=== PATIENT | male | born 1955 | race African-American/Black ===

== ENCOUNTER 2024-02-01 09:38 | Inpatient (IN) | payer SELFPAY ==
--- NOTE | ~2024-02-01 | XR_ITS ---
EXAMINATION: XR CHEST CLINICAL INFORMATION: Cough COMPARISON: None available. TECHNIQUE: Frontal view of the chest was obtained. FINDINGS: No significant abnormality is noted involving the heart, lungs, mediastinum, bony thorax or soft tissues. XR/XR chest 1V IMPRESSION: Unremarkable examination.
--- NOTE | ~2024-02-01 | XR_ITS ---
EXAMINATION: XR ABDOMEN KUB CLINICAL INDICATION: Distention post appendectomy COMPARISON: Previous CT of the abdomen and pelvis January 31 TECHNIQUE: AP view of the abdomen. FINDINGS: Air-filled distended small bowel. Differential would include ileus and partial small bowel obstruction. Nondilated large bowel. No free air. Surgical skin trice. Bony structures unremarkable. Subsegmental atelectasis at the right lung base. XR/XR KUB IMPRESSION: Air-filled distended small bowel. Differential would include ileus and partial small bowel obstruction.
--- NOTE | ~2024-02-01 | CT_ITS ---
EXAMINATION: CT ABDOMEN AND PELVIS WITH CONTRAST CLINICAL INFORMATION: Lower abdominal pain COMPARISON: Chest CT from the same day TECHNIQUE: Multidetector volumetric images were obtained from the superior aspect of the liver through the pubic symphysis following administration 85 mL of Omnipaque 350 intravenous contrast. Sagittal and coronal reformatted images were obtained on the technologist's workstation. Oral contrast: Yes This CT examination was performed using dose optimization techniques as appropriate, variously including the following: *Automated exposure control *Adjustment of mA and/or kV according to patient size (this includes techniques or standardized protocols for targeted exams where dose is matched to indication/reason for exam; i.e. extremities or head) *Use of iterative reconstruction technique DLP: 395 mGy-cm FINDINGS: LIVER, GALLBLADDER, AND BILIARY TREE: The liver is normal in size, shape, and attenuation. Multiple low-attenuation liver lesions. Larger lesions are compatible with cysts. Largest cyst is a multiloculated cyst with several thin septations high in the anterior segment of the right lobe of the liver. Smaller liver lesions are difficult to accurately characterize. No biliary ductal dilatation is present. The gallbladder is unremarkable with no evidence of radiopaque gallstones, gallbladder wall thickening, or obvious pericholecystic inflammatory changes. PANCREAS: Unremarkable. SPLEEN: Unremarkable. ADRENAL GLANDS: Unremarkable. KIDNEYS AND URETERS: The kidneys are normal in size, shape, and attenuation. No hydronephrosis, hydroureter, or calculi seen. I lateral renal cysts. No imaging follow-up recommended. No perinephric stranding. BLADDER: Unremarkable. GASTROINTESTINAL TRACT: There are extensive inflammatory changes seen in the right lower quadrant. The appendix is dilated measuring up to 1 cm and fluid-filled. There is wall enhancement of the appendix. There are several high attenuation densities within the appendiceal lumen questionable for appendicoliths. Largest measures 8 mm. There is abnormal adjacent distal small bowel that demonstrates marked bowel wall thickening, edema and mucosal enhancement. There is extensive stranding of the fat surrounding the appendix, distal small bowel including small bowel mesentery and trace fluid seen in the right lower quadrant. The more proximal small bowel is slightly dilated and fluid-filled. The colon is unremarkable. No evidence of perforation or abscess seen. ABDOMINAL WALL: No significant hernia is appreciated. LYMPH NODES: Small, small bowel mesentery lymphadenopathy in the right lower quadrant. Small retroperitoneal lymph nodes. No enlarged lymph nodes. VASCULAR: Unremarkable. The SMA and SMV are patent. PELVIC VISCERA: Slightly enlarged prostate gland. OSSEOUS STRUCTURES: Degenerative changes of the spine and hip joints. Probable Schmorl's nodes in the L3 vertebral body. CT/CT abdomen pelvis w IV con IMPRESSION: Severe inflammatory changes in the right lower quadrant with abnormal appearing appendix with likely appendicoliths and abnormal distal small bowel/terminal ileum. Primary infectious or inflammatory enteritis and secondary changes of the appendix and appendicitis and secondary inflammatory changes of the small bowel should be considered. There is extensive stranding of the fat surrounding the appendix and distal small bowel and fat stranding in the small bowel mesentery and small amount of free fluid. No evidence of perforation or abscess seen. Upper and bilateral renal cysts. Fleischner guidelines were followed.
--- NOTE | ~2024-02-01 | CT_ITS ---
EXAMINATION: CT CHEST WITHOUT CONTRAST CLINICAL INFORMATION: Recent flu-like symptoms. COMPARISON: Chest x-ray from earlier the same day. TECHNIQUE: Multidetector volumetric CT imaging of the chest was done. Axial MIP volume rendering provided. Sagittal and coronal reformatted images were obtained. This CT examination was performed using dose optimization techniques as appropriate, variously including the following: *Automated exposure control *Adjustment of mA and/or kV according to patient size (this includes techniques or standardized protocols for targeted exams where dose is matched to indication/reason for exam; i.e. extremities or head) *Use of iterative reconstruction technique DLP: 330 mGy-cm FINDINGS: Short-term follow-up chest CT with IV contrast. LUNGS: There is slight irregularity along the peripheral or subpleural surface of the left lower lobe dependently. There is mild left lower lobe bronchiectasis. Lungs are otherwise clear. No endobronchial or endotracheal lesion. No evidence of emphysema or interstitial lung disease. MEDIASTINUM: The mediastinum is normal. CORONARY ARTERY CALCIFICATION: None visualized on this study. PLEURA: There is no pleural effusion. There is question mild nodular left pleural thickening adjacent to the dependent of left lower lobe. AXILLA: No lymphadenopathy. Small left posterior lateral chest wall lipoma. UPPER ABDOMEN: Unremarkable. OSSEOUS STRUCTURES: Mild degenerative changes of the visualized lower cervical and the thoracic spine. CT/CT chest wo IV con IMPRESSION: Mild left lower lobe bronchiectasis. Irregularity along the dependent peripheral or subpleural surface of the left lower lobe versus slightly nodular pleural thickening. No pleural effusion. Short-term follow-up chest CT in several months with IV contrast recommended. Fleischner guidelines were followed.
[2024-02-01 09:53] VITALS: BP 135/85; BP 144/78; PULSE 76; PULSE 99; RESP 18; TEMP 37.8; O2SAT 96; O2SAT 98; BMI 25.3
[2024-02-01 10:21] LABS: MANUAL DIFF FLAG NO
[2024-02-01 10:34] LABS: Basophils Percent Auto 0.3 % (0-2); Eosinophils Percent Auto 0.1 % (0-4); Hematocrit 40.4 % (42.0-52.0); Hemoglobin 13.2 g/dl (14.0-18.0); Imm Gran Abs Auto 0.09 X10*3/uL (0.00-0.03); Imm Gran Pct Auto 0.6 % (0.0-0.4); Lymphocytes Percent Auto 7.2 % (20-40); Mean Corpuscular HGB Conc 32.7 g/dl (31.0-36.0); Mean Corpuscular Hemoglobin 27.4 pg (27.0-33.0); Mean Corpuscular Volume 83.8 fL (80.0-98.0); Mean Platelet Volume 9.6 fL (9.4-12.4); Monocytes Absolute Auto 0.9 X10*3/uL (0.1-1.2); Monocytes Percent Auto 6.6 % (2-11); Neutrophils Absolute Auto 12.1 x10*3/uL (2.0-8.3); Neutrophils Percent Auto 85.2 % (45-73); Platelet Count 394 X10*3/uL (160-400); Red Blood Count 4.82 X10*6/uL (4.60-5.80); Red Cell Distribution Width 12.6 % (11.0-16.0); White Blood Count 14.1 X10*3/uL (4.8-10.8)
[2024-02-01 10:39] LABS: Alanine Aminotransferase 14 U/L (0-40); Albumin Level 3.7 g/dL (3.5-5.0); Alkaline Phosphatase 74 U/L (39-117); Anion Gap 12 (12-20); Aspartate Amino Transferase 18 U/L (5-37); Bilirubin Total 0.7 mg/dL (0.0-1.0); Blood Urea Nitrogen 9 mg/dL (9-16); Calcium 9.9 mg/dL (8.4-10.2); Carbon Dioxide 27 mmol/L (22-29); Chloride 103 mmol/L (96-108); Creatinine Clr Calc Pharmacy 58.7; Estimated Glomerular Filt Rate > 60; Glucose Random 124 mg/dL (60-115); Lipase 42 U/L (8-78); Potassium 3.7 mmol/L (3.3-5.1); Sodium 138 mmol/L (135-145)
[2024-02-01 11:00] LABS: Influenza A PCR NEGATIVE (Negative); Influenza B PCR NEGATIVE (Negative); Resp Syncy Virus RNA Qual PCR NEGATIVE (Negative); SARS COV2 PCR INHOUSE NEGATIVE (Negative)
[2024-02-01 11:11] VITALS: RESP 16; TEMP 37.3
--- NOTE | 2024-02-01 13:40 | ED_ITS ---
HPI - General Adult General Chief complaint: Abdominal Pain Stated complaint: ABD PAIN DIARRHEA Time Seen by Provider: 02/01/24 13:28 Source: patient Mode of arrival: EMS Limitations: no limitations History of Present Illness HPI narrative: This is a 68-year-old man who was brought in by EMS for evaluation of abdominal pain, nausea, vomiting and diarrhea. Patient reports his symptoms started today. Patient reports no past medical history, chronic prescription medications or previous surgical history. Patient reports 1 episode of nonbloody diarrhea this morning. Patient reports few episodes of nausea, spitting up and emesis. He states no hematemesis. He states no dysuria or urinary frequency/urgency. He states no flank pain. He states no melena or hematochezia. He states no testicular pain or swelling. He states no abnormal penile discharge. He states no rashes. He states no chest pain or dyspnea. Patient states that about a week ago he had nasal congestion and subjective fevers. He states that he is from [place] is staying this friend. He states that he will be in the area for a couple more weeks. Related Data Home Medications ?Medication ?Instructions ?Recorded ?Confirmed No Known Home Meds 02/01/24 02/01/24 Allergies Allergy/AdvReac Type Severity Reaction Status Date / Time No Known Allergies Allergy Verified 02/01/24 09:56 Review of Systems 2 Review of Systems: ROS as per [facility] Social History Social History Alcohol intake: current Smoked in Last 30 Days: No Use of substances other than those prescribed or required for medical reasons: No Advance Directives: No Do you have a plan to hurt others: No Plan Physical Exam ED Vital Signs: Vital Signs - 24 hr 02/01/24 09:53 02/01/24 11:11 02/01/24 14:19 Temperature 100.1 F 99.2 F Pulse Rate 99 100 Respiratory Rate 18 16 20 Blood Pressure 144/78 H 149/75 H Pulse Oximetry 98 Oxygen Delivery Method Room Air 02/01/24 14:26 02/01/24 17:54 Temperature Pulse Rate 97 103 H Respiratory Rate 17 16 Blood Pressure 133/68 119/70 Pulse Oximetry 98 98 Oxygen Delivery Method Room Air Room Air BMI result Body Mass Index 25.3 Gen: NAD, AOx3 HEENT: NCAT, EOMI, normal conjunctiva CV: RRR Pulm: CTAB, no increased work of breathing GI: Soft, nondistended, mild bilateral lower abdominal tenderness to palpation, no rebound, guarding or rigidity Neuro: Grossly non focal Medications Administered Discontinued Medications Generic Name Dose Route Start Last Admin Trade Name Elly PRN Reason Stop Dose Admin Lactated Ringer's 1,000 mls @ 999 mls/hr 02/01/24 13:47 02/01/24 16:59 Lr IV 02/01/24 14:47 Infused .Q1H1M ONE Infusion Piperacillin Sod/Tazobactam 50 mls @ 100 mls/hr 02/01/24 16:27 02/01/24 17:26 Sod 3.375 gm/ Sodium Chloride IV 02/01/24 16:56 Infused ONCE ONE Infusion Iohexol 100 ml 02/01/24 14:58 02/01/24 14:58 Iohexol 350 Mg/Ml 100 Ml Infus..Btl IV 02/01/24 14:59 85 ml ONCE ONE Administration Morphine Sulfate 4 mg 02/01/24 13:47 02/01/24 14:11 Morphine Sulfate 4 Mg/Ml Cartridge IVPUSH 02/01/24 13:48 4 mg ONCE ONE Administration Protocol Ondansetron HCl 4 mg 02/01/24 13:47 02/01/24 14:11 Ondansetron Hcl 4 Mg/2 Ml Vial IVPUSH 02/01/24 13:48 4 mg ONCE ONE Administration Medical Decision Making Medical Decision Making MDM Narrative: Differential diagnosis includes, but is not limited to appendicitis, bowel obstruction, perforated hollow viscus, viral illness, gastroenteritis. Patient is afebrile and hemodynamically stable on room air. Exam is notable for a lower abdominal tenderness to palpation. I reviewed and interpreted labs, which is notable for a leukocytosis of 14.1. I reviewed and interpreted EKG, which is unremarkable for any acute findings. On re-examination at 3:47 p.m., patient reports feeling ?better? after receiving Zofran and Morphine. He is resting comfortably in hospital stretcher receiving IV fluids and awaiting CT imaging results. I do not suspect sepsis given overall well-appearing patient without fever or hemodynamic instability. Diagnostic imaging studies with findings concerning for appendicitis. General surgery is consulted at 1625. I discussed case and CT findings briefly with Dr. Lovett who requests discussion with his relief at 5:00pm. Patient is provided Zosyn. I will discuss with General Surgery at 5:00pm. 1636 - patient resting comfortably in hospital stretcher in no acute distress. 1706 - message sent to Dr. Palacios (General Surgery) I discussed case with Dr. Barrientos via telephone who requests admission. Patient admitted to Dr. Palacios at 1716. Admission/Observation Consideration of admission/observation: Escalation of care including admission/observation considered Consult Healthcare Provider Management of the patient was discussed with: Crm Consultant I discussed case with Dr. Palacios (General Surgery). Lab Data MDM Lab Attestation statement: I reviewed the patient's lab results. 02/01/24 10:16 02/01/24 10:16 Labs: Lab Results 02/01/24 Range/Units 10:16 WBC 14.1 H (4.8-10.8) X10*3/uL RBC 4.82 (4.60-5.80) X10*6/uL Hgb 13.2 L (14.0-18.0) g/dl Hct 40.4 L (42.0-52.0) % MCV 83.8 (80.0-98.0) fL MCH 27.4 (27.0-33.0) pg MCHC 32.7 (31.0-36.0) g/dl RDW 12.6 (11.0-16.0) % Plt Count 394 (160-400) X10*3/uL MPV 9.6 (9.4-12.4) fL Immature Gran % (Auto) 0.6 H (0.0-0.4) % Neut % (Auto) 85.2 H (45-73) % Lymph % (Auto) 7.2 L (20-40) % [place] % (Auto) 6.6 (2-11) % Eos % (Auto) 0.1 (0-4) % Baso % (Auto) 0.3 (0-2) % Lymph # (Auto) 1.0 L (1.2-4.9) X10*3/uL [place] # (Auto) 0.9 (0.1-1.2) X10*3/uL Eos # (Auto) 0.0 (0.0-0.4) X10*3/uL Baso # (Auto) 0.0 (0.0-0.2) X10*3/uL Abs Immat Gran (auto) 0.09 H (0.00-0.03) X10*3/uL Absolute Neuts (auto) 12.1 H (2.0-8.3) x10*3/uL Absolute Nucleated RBC 0.000 (0.0-0.012) X10*3/uL Nucleated RBC % (auto) 0.0 (0.0-0.2) /100WBC Sodium 138 (135-145) mmol/L Potassium 3.7 (3.3-5.1) mmol/L Chloride 103 (96-108) mmol/L Carbon Dioxide 27 (22-29) mmol/L Anion Gap 12 (12-20) BUN 9 (9-16) mg/dL Creatinine 1.14 (0.5-1.4) mg/dL Estim Creat Clear Calc 58.7 Estimated GFR > 60 Random Glucose 124 H (60-115) mg/dL Calcium 9.9 (8.4-10.2) mg/dL Total Bilirubin 0.7 (0.0-1.0) mg/dL AST 18 (5-37) U/L ALT 14 (0-40) U/L Alkaline Phosphatase 74 (39-117) U/L Total Protein 8.0 (6.5-8.0) g/dL Albumin 3.7 (3.5-5.0) g/dL Lipase 42 (8-78) U/L Influenza Type A (PCR) NEGATIVE (Negative) Influenza Type B (PCR) NEGATIVE (Negative) RSV RNA Qual (PCR) NEGATIVE (Negative) SARS-CoV-2 RNA (RT-PCR) NEGATIVE (Negative) Independent Interpretation I performed an independent interpretation of an: EKG and Plain X-Ray Interpretation: EKG demonstrates sinus rhythm at 84 beats per minutes, MA 206, first-degree AV block, QRS 96, QTC 508, no STEMI (no prior EKG for comparison) Chest x-ray does not demonstrate any pneumothorax, widened mediastinum or focal consolidation. Radiology Impression Discussion of test interpretation with radiology: I have reviewed the radiologist's reading. Radiologist Impression: IMPRESSION: Unremarkable examination. Dictated By: Patsy Martinez MD Signed By: <Electronically signed by Patsy Martinez MD in OV> 02/01/24 1231 IMPRESSION: Mild left lower lobe bronchiectasis. Irregularity along the dependent peripheral or subpleural surface of the left lower lobe versus slightly nodular pleural thickening. No pleural effusion. Short-term follow-up chest CT in several months with IV contrast recommended. Fleischner guidelines were followed. Dictated By: Patsy Martinez MD Signed By: <Electronically signed by Patsy Martinez MD in OV> 02/01/24 1617 IMPRESSION: Severe inflammatory changes in the right lower quadrant with abnormal appearing appendix with likely appendicoliths and abnormal distal small bowel/terminal ileum. Primary infectious or inflammatory enteritis and secondary changes of the appendix and appendicitis and secondary inflammatory changes of the small bowel should be considered. There is extensive stranding of the fat surrounding the appendix and distal small bowel and fat stranding in the small bowel mesentery and small amount of free fluid. No evidence of perforation or abscess seen. Upper and bilateral renal cysts. Fleischner guidelines were followed. Dictated By: Patsy Martinez MD Signed By: <Electronically signed by Patsy Martinez MD in OV> 02/01/24 1613 Discharge Plan Discharge Clinical Impression: Acute appendicitis Patient Disposition: Admitted As Inpatient Print Language: Other
--- NOTE | 2024-02-01 13:42 | ECG_ITS ---
Test Reason : ABDOMINAL PAIN Blood Pressure : / mmHG Vent. Rate : 100 BPM Atrial Rate : 100 BPM P-R Int : 150 ms QRS Dur : 082 ms QT Int : 320 ms P-R-T Axes : 072 096 052 degrees QTc Int : 412 ms Normal sinus rhythm Possible Left atrial enlargement Rightward axis Biventricular hypertrophy Abnormal ECG No previous ECGs available Referred By: Oskar Betancourt Electronically Signed By:ERIC DIAZ MD
[2024-02-01] MEDS: Lactated Ringers 1,000 ML 999 ML IV (14:10)
[2024-02-01] MEDS: ondansetron HCL 4 MG/2 ML VIAL IVPUSH (14:11)
[2024-02-01] MEDS: Morphine Sulfate 4 MG/ML CARTRIDGE IVPUSH (14:11)
[2024-02-01 14:19] VITALS: BP 149/75; PULSE 100; RESP 20
[2024-02-01 14:26] VITALS: BP 133/68; PULSE 97; RESP 17; O2SAT 98
[2024-02-01] MEDS: iohexoL 350 MG/ML 100 ML INFUS..BTL IV (14:58)
[2024-02-01] MEDS: Piperacillin Sodium/Tazobactam 3.375 GM in 0.9 % Sodium Chloride 50 ML IV (16:55)
[2024-02-01 17:54] VITALS: BP 119/70; PULSE 103; RESP 16; O2SAT 98
--- NOTE | 2024-02-01 18:51 | PHA.MEDREC ---
Pharmacy Consult ? Medication Reconciliation Pharmacy has completed the medication reconciliation. PT not on any meds at home.
--- NOTE | 2024-02-01 19:24 | PC.NURSE ---
This RN assumed pt care @ 1900. Pt resting in bed, no signs of distress. Plan of care ongoing.
--- NOTE | 2024-02-01 19:41 | PM.HPGS ---
History of Present Illness History of Present Illness Date of Service: 02/02/24 Chief complaint: abdo pain Narrative: Monica Singh is a 68 year old male who lives in [place] visiting friends when he says he got caught in the rain and got wet and then got a cold and then with a cold started having abdominal pain some diarrhea and then the pain got worse in the right lower quadrant so she came to the emergency room. He has had a temperature he has never had pain like this before. Generally he says he is very healthy and does not really take any medications no previous surgeries. Here his white count was elevated in the 14,[address] scan showed significant inflammatory changes in the right lower quadrant with thickened small bowel and appendix a little enlarged with appendicolith present. Question primary appendicitis with reactive small bowel versus the opposite. Patient denies any issues with Crohn's disease ulcerative colitis etc.. Review of Systems Review of Systems: Yes all other systems are reviewed and are negative PMFSH Social History Social History Household Members: Significant Other Housing: Apartment Do you presently have visiting nurse or other home services: No Alcohol intake: current Patient Tobacco Use Status: Former Tobacco user Smoked in Last 30 Days: No Use of substances other than those prescribed or required for medical reasons: No Do you feel safe in your current relationship?: Yes Advance Directives: No Do you have a plan to hurt others: No Plan Recently lost weight without trying: No service: No Meds Allergies Allergy/AdvReac Type Severity Reaction Status Date / Time No Known Allergies Allergy Verified 02/01/24 09:56 Home Medications ?Medication ?Instructions ?Recorded ?Confirmed ?Last Taken ?Type No Known Home Meds 02/01/24 02/01/24 Unknown History Physical Exam Vital Signs: Vital Signs: Last Vital Signs Temp 99.2 F 02/01/24 11:11 Pulse 103 H 02/01/24 17:54 Resp 16 02/01/24 17:54 BP 119/70 02/01/24 17:54 Pulse Ox 98 02/01/24 17:54 O2 Del Method Room Air 02/01/24 17:54 BMI result Body Mass Index 25.3 Const: General: cooperative, healthy appearing, no acute distress and acute distress mild Orientation/consciousness: oriented to person and patient oriented x3 Resp: Effort & Inspection: normal respiratory effort and able to speak in complete sentences Auscultation: clear to auscultation bilaterally Percussion: percussion normal Cardio: Rate: regular rate Rhythm: regular rhythm GI: Other: Abdomen is soft nondistended tender with guarding in the right lower quadrant no peritoneal signs active bowel sounds no masses Skin: Other: Nonicteric Neuro: General: oriented to person and patient oriented x3 Cranial nerves: Yes CN's II-XII intact bilaterally Extrem: General: Yes normal to inspection Results Results Labs: Short CBC 02/01/24 Range/Units 10:16 WBC 14.1 H (4.8-10.8) X10*3/uL Hgb 13.2 L (14.0-18.0) g/dl Hct 40.4 L (42.0-52.0) % Plt Count 394 (160-400) X10*3/uL BMP 02/01/24 10:16 Sodium 138 Potassium 3.7 Chloride 103 Carbon Dioxide 27 BUN 9 Creatinine 1.14 Calcium 9.9 Liver Function 02/01/24 Range/Units 10:16 Total Bilirubin 0.7 (0.0-1.0) mg/dL AST 18 (5-37) U/L ALT 14 (0-40) U/L Alkaline Phosphatase 74 (39-117) U/L Albumin 3.7 (3.5-5.0) g/dL Abdomen CT scan report/results: report reviewed and image reviewed CT scan - pelvis: report reviewed and image reviewed Additional studies: dering Physician: Oskar Betancourt MD Date of Service: 02/01/24 Procedure(s): CT abdomen pelvis w IV con Accession Number(s): [id number] cc: Physician,None ; Oskar Betancourt MD~ EXAMINATION: CT ABDOMEN AND PELVIS WITH CONTRAST CLINICAL INFORMATION: Lower abdominal pain COMPARISON: Chest CT from the same day TECHNIQUE: Multidetector volumetric images were obtained from the superior aspect of the liver through the pubic symphysis following administration 85 mL of Omnipaque 350 intravenous contrast. Sagittal and coronal reformatted images were obtained on the technologist's workstation. Oral contrast: Yes This CT examination was performed using dose optimization techniques as appropriate, variously including the following: *Automated exposure control *Adjustment of mA and/or kV according to patient size (this includes techniques or standardized protocols for targeted exams where dose is matched to indication/reason for exam; i.e. extremities or head) *Use of iterative reconstruction technique DLP: 395 mGy-cm FINDINGS: LIVER, GALLBLADDER, AND BILIARY TREE: The liver is normal in size, shape, and attenuation. Multiple low-attenuation liver lesions. Larger lesions are compatible with cysts. Largest cyst is a multiloculated cyst with several thin septations high in the anterior segment of the right lobe of the liver. Smaller liver lesions are difficult to accurately characterize. No biliary ductal dilatation is present. The gallbladder is unremarkable with no evidence of radiopaque gallstones, gallbladder wall thickening, or obvious pericholecystic inflammatory changes. PANCREAS: Unremarkable. SPLEEN: Unremarkable. ADRENAL GLANDS: Unremarkable. KIDNEYS AND URETERS: The kidneys are normal in size, shape, and attenuation. No hydronephrosis, hydroureter, or calculi seen. I lateral renal cysts. No imaging follow-up recommended. No perinephric stranding. BLADDER: Unremarkable. GASTROINTESTINAL TRACT: There are extensive inflammatory changes seen in the right lower quadrant. The appendix is dilated measuring up to 1 cm and fluid-filled. There is wall enhancement of the appendix. There are several high attenuation densities within the appendiceal lumen questionable for appendicoliths. Largest measures 8 mm. There is abnormal adjacent distal small bowel that demonstrates marked bowel wall thickening, edema and mucosal enhancement. There is extensive stranding of the fat surrounding the appendix, distal small bowel including small bowel mesentery and trace fluid seen in the right lower quadrant. The more proximal small bowel is slightly dilated and fluid-filled. The colon is unremarkable. No evidence of perforation or abscess seen. ABDOMINAL WALL: No significant hernia is appreciated. LYMPH NODES: Small, small bowel mesentery lymphadenopathy in the right lower quadrant. Small retroperitoneal lymph nodes. No enlarged lymph nodes. VASCULAR: Unremarkable. The SMA and SMV are patent. PELVIC VISCERA: Slightly enlarged prostate gland. OSSEOUS STRUCTURES: Degenerative changes of the spine and hip joints. Probable Schmorl's nodes in the L3 vertebral body. CT/CT abdomen pelvis w IV con IMPRESSION: Severe inflammatory changes in the right lower quadrant with abnormal appearing appendix with likely appendicoliths and abnormal distal small bowel/terminal ileum. Primary infectious or inflammatory enteritis and secondary changes of the appendix and appendicitis and secondary inflammatory changes of the small bowel should be considered. There is extensive stranding of the fat surrounding the appendix and distal small bowel and fat stranding in the small bowel mesentery and small amount of free fluid. No evidence of perforation or abscess seen. Upper and bilateral renal cysts. Assessment and Plan (1) Acute appendicitis: Status: Acute Plan 68-year-old male with abdominal pain after couple of days of not feeling well having what he calls this a flu and now with pain in the right lower quadrant CT scan showing inflammatory changes involving small bowel that is thickened as well as the appendix which is little distended and with appendicolith present. There is a lot inflammatory changes in the fat tissue surrounding the appendix in the mesentery of the small bowel. It has not quite certain that this is for sure appendicitis versus some type of enteritis considering his prodrome of those symptoms as well. Plan to admit IV antibiotics re-evaluate in the morning and if not improved then carry out exploratory laparoscopy with appendectomy. He is from out of town but understands that he needs to be here in the hospital for IV antibiotics and care and possible surgery. He understands and agrees with the above plan. Quality Stroke Does the patient have a stroke diagnosis?: No VTE Prior VTE?: No VTE Risk Level:: Surgical - low VTE Device Contraindication: N/A - Device Ordered VTE Drug Contraindication: Treatment Not Tolerated Procedures Date of Service Date of Service: 02/02/24
--- NOTE | 2024-02-01 19:45 | PC.NURSE ---
Pt with surgeon. Pt to be tx with abx and will remain on npo for now. Pt given a pillow for comfort. Plan of care ongoing.
[2024-02-01] MEDS: 0.9 % Sodium Chloride 1,000 ML 100 ML IVCONT (20:25)
[2024-02-01] MEDS: Pantoprazole Sodium 40 MG/10 ML VIAL IVPUSH (20:26)
--- NOTE | 2024-02-01 20:30 | PC.NURSE ---
Pt transferred into hospital bed for comfort. Pt medicated per oct. Plan of care ongoing.
[2024-02-01 21:31] VITALS: BP 119/61; PULSE 99; RESP 20; TEMP 38.4; O2SAT 96
[2024-02-02] VITALS (13 sets, daily range): BP systolic 104–143; BP diastolic 65–86; PULSE 73–100; RESP 12–19; TEMP 36.1–37.9; O2SAT 94–98; BMI 26.1
[2024-02-02] MEDS: Piperacillin Sodium/Tazobactam 3.375 GM in 0.9 % Sodium Chloride 50 ML IV ×4 (01:00→18:33)
--- NOTE | 2024-02-02 01:22 | PC.NURSE ---
Pt medicated per oct. Plan of care ongoing.
[2024-02-02 06:16] LABS: MANUAL DIFF FLAG NO
[2024-02-02 06:28] LABS: Basophils Percent Auto 0.2 % (0-2); Hematocrit 39.5 % (42.0-52.0); Hemoglobin 12.8 g/dl (14.0-18.0); Imm Gran Abs Auto 0.16 X10*3/uL (0.00-0.03); Imm Gran Pct Auto 0.9 % (0.0-0.4); Lymphocytes Percent Auto 5.6 % (20-40); Mean Corpuscular HGB Conc 32.4 g/dl (31.0-36.0); Mean Corpuscular Hemoglobin 27.1 pg (27.0-33.0); Mean Corpuscular Volume 83.5 fL (80.0-98.0); Mean Platelet Volume 9.5 fL (9.4-12.4); Monocytes Absolute Auto 0.6 X10*3/uL (0.1-1.2); Monocytes Percent Auto 3.6 % (2-11); Neutrophils Absolute Auto 15.7 x10*3/uL (2.0-8.3); Neutrophils Percent Auto 89.7 % (45-73); Platelet Count 374 X10*3/uL (160-400); Red Blood Count 4.73 X10*6/uL (4.60-5.80); Red Cell Distribution Width 12.7 % (11.0-16.0); White Blood Count 17.5 X10*3/uL (4.8-10.8)
[2024-02-02] MEDS: 0.9 % Sodium Chloride 1,000 ML 100 ML IVCONT ×2 (06:40→22:24)
[2024-02-02 06:43] LABS: Anion Gap 13 (12-20); Blood Urea Nitrogen 9 mg/dL (9-16); Calcium 9.5 mg/dL (8.4-10.2); Carbon Dioxide 22 mmol/L (22-29); Chloride 106 mmol/L (96-108); Creatinine Clr Calc Pharmacy 61.4; Estimated Glomerular Filt Rate > 60; Glucose Random 102 mg/dL (60-115); Potassium 3.6 mmol/L (3.3-5.1); Sodium 137 mmol/L (135-145)
[2024-02-02] MEDS: Pantoprazole Sodium 40 MG/10 ML VIAL IVPUSH (07:31)
--- NOTE | 2024-02-02 07:39 | PC.NURSE ---
patient appears to be resting quietly w/ even and unlabored respirations. medicated per the MAR.
[2024-02-02] MEDS: ondansetron HCL 4 MG/2 ML VIAL IVPUSH (11:41)
--- NOTE | 2024-02-02 13:05 | MHC.CM.PN ---
Patient lives w/ , Anna, in a home in [place]. He is currently visting a friend in [place]. Functionally independent. Denies use of services or DME. States he has an appt to establish care w/ a PCP in [place], but he cannot recall name of provider. He is unsure if he has insurance. No HCP. CM provided education and offered assistance. Patient declined. DP: Goal is return to friend's house, self care, friend to transport. CM will continue to follow.
--- NOTE | 2024-02-02 13:56 | P.PNGS_ITS ---
Subjective Subjective Date of Service: 02/02/24 Interval history: Patient not feeling better still with abdominal pain had a temperature last night up to 101. Physical Exam 2 Vital Signs: Vital Signs: Last Vital Signs Temp 97.7 F 02/02/24 13:37 Pulse 97 02/02/24 13:37 Resp 16 02/02/24 13:37 BP 143/86 H 02/02/24 13:37 Pulse Ox 97 02/02/24 13:37 O2 Del Method Room Air 02/02/24 13:37 BMI result Body Mass Index 26.1 Const: General: cooperative and in distress mild Resp: Effort & Inspection: normal respiratory effort Auscultation: clear to auscultation bilaterally Cardio: Rate: regular rate Rhythm: regular rhythm GI: Other: Abdomen is soft nondistended tender in the right lower quadrant continued guarding no peritoneal signs Inspection: Yes normal to inspection Psych: Appearance: grossly normal Mental Status: mental status grossly normal Speech and movement: Normal speech and movement present Affect: n ormal affect Objective Data Active Medications Sodium Chloride (Ns) 1,000 mls @ 100 mls/hr IVCONT .Q10H [facility] Last Admin: 02/02/24 06:40 Dose: 100 mls/hr Documented By: LIZZETTE Piperacillin Sod/Tazobactam (Sod 3.375 gm/ Sodium Chloride) 50 mls @ 100 mls/hr IV Q6H [facility] Last Infusion: 02/02/24 12:21 Dose: Infused Documented By: YARI Ketorolac Tromethamine (Ketorolac Tromethamine 15 Mg/Ml Vial) 15 mg IVPUSH RQ6H PRN PRN Reason: Pain, Severe (Pain Scale 7-10) Ondansetron HCl (Ondansetron Hcl 4 Mg/2 Ml Vial) 4 mg IVPUSH RQ6H PRN PRN Reason: Nausea and Vomiting Last Admin: 02/02/24 11:41 Dose: 4 mg Documented By: YARI Pantoprazole Sodium (Pantoprazole Sodium 40 Mg/10 Ml Vial) 40 mg IVPUSH DAILY [facility] Last Admin: 02/02/24 07:31 Dose: 40 mg Documented By: YANET Sodium Chloride (0.9 % Sodium Chloride Flush 3 Ml Syringe) 3 ml IVFLUSH QSHIFT [facility] Last Admin: 06/08/24 10:26 Dose: Not Given Documented By: YARI Non-Admin Reason: IV Running Labs 02/02/24 05:56 02/02/24 05:56 Labs: Laboratory Results - last 24 hr 02/02/24 05:56 MCV 83.5 MCH 27.1 MCHC 32.4 RDW 12.7 Plt Count 374 MPV 9.5 Immature Gran % (Auto) 0.9 H Neut % (Auto) 89.7 H Lymph % (Auto) 5.6 L [place] % (Auto) 3.6 Eos % (Auto) 0.0 Baso % (Auto) 0.2 Lymph # (Auto) 1.0 L [place] # (Auto) 0.6 Eos # (Auto) 0.0 Baso # (Auto) 0.0 Abs Immat Gran (auto) 0.16 H Absolute Neuts (auto) 15.7 H Absolute Nucleated RBC 0.000 Nucleated RBC % (auto) 0.0 Anion Gap 13 Estim Creat Clear Calc 61.4 Estimated GFR > 60 Random Glucose 102 Calcium 9.5 Procedures Date of Service Date of Service: 02/02/24 Progress Note: A&P Assessment and plan (1) Acute appendicitis: Status: Acute Plan 68-year-old male with right lower quadrant pain inflammatory changes in the right lower quadrant involving the appendix as well as the small bowel. Patient has not improved with IV antibiotics and bowel rest plan to carry out laparoscopic exploration possible open procedure with goal to remove the appendix. Risks and benefit were discussed with the patient including but not limited to bleeding infection bowel injury despite this he wishes to proceed. We will plan on taking him to the OR today. Time Spent With Patient Time: Total time managing care of this patient today ____ minutes. Quality Stroke Does the patient have a stroke diagnosis?: No VTE Prior VTE?: No VTE Risk Level:: Surgical - low VTE Device Contraindication: N/A - Device Ordered VTE Drug Contraindication: Treatment Not Tolerated
--- NOTE | 2024-02-02 15:15 | P.CONAN_ITS ---
HPI - Anesthesia Eval Consult details Narrative: Abdominal pain PMFSH Active Problems Active Problems: All Active Problems Acute appendicitis (Acute) Family History Family history of problems with anesthesia: No Surgical History History of Problems with Anesthesia: No Social History Social History Household Members: Significant Other Housing: Apartment Do you presently have visiting nurse or other home services: No Alcohol intake: current Patient Tobacco Use Status: Former Tobacco user Smoked in Last 30 Days: No Use of substances other than those prescribed or required for medical reasons: No Do you feel safe in your current relationship?: Yes Advance Directives: No Do you have a plan to hurt others: No Plan Recently lost weight without trying: No service: No Meds Allergies Allergy/AdvReac Type Severity Reaction Status Date / Time No Known Allergies Allergy Verified 02/01/24 09:56 Active Medications: Current Medications Sodium Chloride (Ns) 1,000 mls @ 100 mls/hr IVCONT .Q10H [facility] Last Admin: 02/02/24 06:40 Dose: 100 mls/hr Piperacillin Sod/Tazobactam (Sod 3.375 gm/ Sodium Chloride) 50 mls @ 100 mls/hr IV Q6H [facility] Last Infusion: 02/02/24 12:21 Dose: Infused Ketorolac Tromethamine (Ketorolac Tromethamine 15 Mg/Ml Vial) 15 mg IVPUSH RQ6H PRN PRN Reason: Pain, Severe (Pain Scale 7-10) Ondansetron HCl (Ondansetron Hcl 4 Mg/2 Ml Vial) 4 mg IVPUSH RQ6H PRN PRN Reason: Nausea and Vomiting Last Admin: 02/02/24 11:41 Dose: 4 mg Pantoprazole Sodium (Pantoprazole Sodium 40 Mg/10 Ml Vial) 40 mg IVPUSH DAILY [facility] Last Admin: 02/02/24 07:31 Dose: 40 mg Sodium Chloride (0.9 % Sodium Chloride Flush 3 Ml Syringe) 3 ml IVFLUSH QSHIFT [facility] Last Admin: 02/02/24 10:26 Dose: Not Given Home Medications ?Medication ?Instructions ?Recorded ?Confirmed ?Last Taken ?Type No Known Home Meds 02/01/24 02/01/24 Unknown History Exam Height,Weight and Vital Signs: Height 5 ft 7 in Weight 75.5 kg Last Vital Signs Temp 98.7 F 02/02/24 14:51 Pulse 98 02/02/24 14:51 Resp 16 02/02/24 14:51 BP 135/75 02/02/24 14:51 Pulse Ox 98 02/02/24 14:51 O2 Del Method Room Air 02/02/24 14:51 Pertinent Lab Results Pertinent Lab Results: Laboratory Tests 02/01/24 02/02/24 10:16 05:56 WBC 14.1 H 17.5 H RBC 4.82 4.73 Hgb 13.2 L 12.8 L Hct 40.4 L 39.5 L MCV 83.8 83.5 MCH 27.4 27.1 MCHC 32.7 32.4 RDW 12.6 12.7 Plt Count 394 374 MPV 9.6 9.5 Immature Gran % (Auto) 0.6 H 0.9 H Neut % (Auto) 85.2 H 89.7 H Lymph % (Auto) 7.2 L 5.6 L [place] % (Auto) 6.6 3.6 Eos % (Auto) 0.1 0.0 Baso % (Auto) 0.3 0.2 Lymph # (Auto) 1.0 L 1.0 L [place] # (Auto) 0.9 0.6 Eos # (Auto) 0.0 0.0 Baso # (Auto) 0.0 0.0 Abs Immat Gran (auto) 0.09 H 0.16 H Absolute Neuts (auto) 12.1 H 15.7 H Absolute Nucleated RBC 0.000 0.000 Nucleated RBC % (auto) 0.0 0.0 Sodium 138 137 Potassium 3.7 3.6 Chloride 103 106 Carbon Dioxide 27 22 Anion Gap 12 13 BUN 9 9 Creatinine 1.14 1.09 Estim Creat Clear Calc 58.7 61.4 Estimated GFR > 60 > 60 Random Glucose 124 H 102 Calcium 9.9 9.5 Total Bilirubin 0.7 AST 18 ALT 14 Alkaline Phosphatase 74 Total Protein 8.0 Albumin 3.7 Lipase 42 Influenza Type A (PCR) NEGATIVE Influenza Type B (PCR) NEGATIVE RSV RNA Qual (PCR) NEGATIVE SARS-CoV-2 RNA (RT-PCR) NEGATIVE Airway Mallampati Class: I TM Dist: >3cm Neck ROM: Full Loose/Missing/Broken Teeth: No Heart: RRR Lungs: CTA Assessment and Plan Assessment Anesthesia Assessment: Anesthesia Plan Discussed and Chart Reviewed Final Anesthetic Review Family History of Problems with Anesthesia: No History of Problems with Anesthesia: No NPO: Yes ASA Class: I Final Preanesthetic Review: No Changes in Pt Med Stat, Meds/Allgs Chart Reviewed, Consent Obtained/Reviewed and Anes Risks/Benef Reviewed Patient Risk: Low Procedure Risk: Intermediate Anesthetic Plan Anesthetic Plan: GA Disposition: Standard PACU
--- NOTE | 2024-02-02 18:47 | P.OP_ITS ---
Operative Note Operative Note Date of Service: 02/02/24 Narrative: Preop diagnosis-- acute appendicitis Postop diagnosis-- ruptured appendicitis Procedure-- exploratory laparoscopy converted to open appendectomy Surgeon--Orionclaudia Anesthesia-- general Patient is a 68-year-old male who presented to the emergency room yesterday complaining of getting a cold flu symptoms and then eventually having more right-sided pain. He presented with tenderness in the right lower quadrant white count elevated to 14,000 and significant inflammatory changes in the right lower quadrant with terminal ileum being thickened as well as the appendix being distended and with appendicolith present. Unsure what the initial primary issue was and treated him with IV antibiotics observation overnight but not improved so plan was to carry out laparoscopic appendectomy Findings-- The appendix was surrounded by the terminal ileum and there was a pocket of purulent material at the base of the cecum and the TI. In further evaluation the appendix had ruptured and there was free appendicolith present distally although most of the inflammatory changes were all around the cecum and TI. Procedure-- Patient was brought to the operative room under Anesthesia guidance was intubated. He had a Grady catheter placed. He had been receiving antibiotics preoperatively. His abdomen was prepped and draped in standard surgical fashion. An infraumbilical incision was created after numbing up the area with a 0.25% Marcaine with epinephrine. Dissection was carried down to the anterior abdominal wall fascia which was grasped with Cheryl's and transected. The Felipe trocar introduced and pneumoperitoneum established to 15 mmHg pressure. The camera was introduced and immediately was noted that there was moderate distended small bowel loops throughout. Positioning the patient left side down we were able to see a little bit more in the right pelvic lateral area and there was an area of significant inflammatory changes noted. Two 5 mm ports were then placed under direct visualization using local 1 in the suprapubic area and 1 in the left lower quadrant. Now we were able to look at the cecum and follow the thickened terminal ileum to the base of the cecum in this area it was noted that we got into a pocket of purulent material and there was significant who is of white thick material and then eventually noted was a little stool ball. We are able to find part of the appendix but in trying to evaluate what the problem was and probing near the TI cecal junction a true hole was not noted. No succus material was seen. It was difficult to really understand the anatomy here and so thought was to maybe carry out an open procedure however there was a benefit to mobilize the right colon laterally and this was done laparoscopically. In doing so we got to the point where we could bring over that part of the colon under the midline area and it was decided to open with a midline incision. This was carried out a little above and below the umbilicus and the peritoneal cavity was entered. Immediately the thickened terminal ileum was noted underneath the incision this was brought out through the wound and examined. The bowel wall itself thickened but viable and fine the mesentery here was very thick in examining where the TI entered into the cecum despite laparoscopically they are noted to be moderate amount of purulent material here the junction seemed relatively okay. In examining now the appendix was noted to be in 2 parts but still connected via the mesentery. In following the base of the appendix all the way up to the cecum the actual junction was identified and it actually looked decent. As a result it was decided to just carry out appendectomy and not have to do a full ileocecectomy with anastomosis. The base of the appendix was dissected out with a right angle and then the Endo-DEEPAK stapler fired across the appendiceal cecal junction. This tissue actually looked quite viable and good. Using 3-0 silk the appendiceal stump area was imbricated over. The L igaSure was then used to take off the appendix from the mesentery and this allowed the appendix to be passed off for specimen. Examination of the distal ileum TI and cecal junction revealed everything looked good. The cecal area also looked good. The appendiceal stump looked good. Moderate suctioned and irrigation was carried out there was no purulent material noted now. Good hemostasis was achieved. The cecum was then placed again in the right colon gutter and the midline incision closed with running 0 PDS superiorly and inferiorly in the wound and tied centrally. The subcutaneous fatty tissue was irrigated with Betadine saline. Ronda were then used to approximate the skin edges after local was infiltrated in the tissue here. Port site incisions were closed with trice as well. At the end of the case all sponge instrument needle counts were correct estimated blood loss was about 20 cc. Specimen sent was the appendix. Patient was extubated returned stable to the recovery room. Grady catheter will be left in for in's and out's monitoring as most likely expect him to have some degree of an ileus
[2024-02-02] MEDS: Enoxaparin Sodium 40 MG/0.4 ML SYRINGE SUBCUT (19:57)
[2024-02-03] MEDS: Ketorolac Tromethamine 15 MG/ML VIAL IVPUSH ×4 (00:10→17:18)
[2024-02-03] MEDS: Piperacillin Sodium/Tazobactam 3.375 GM in 0.9 % Sodium Chloride 50 ML IV ×4 (00:11→17:19)
[2024-02-03 03:34] VITALS: BP 121/76; PULSE 66; RESP 16; TEMP 36.3; O2SAT 98
[2024-02-03 06:38] LABS: Basophils Percent Auto 0.2 % (0-2); Eosinophils Percent Auto 0.2 % (0-4); Hemoglobin 13.2 g/dl (14.0-18.0); Imm Gran Abs Auto 0.09 X10*3/uL (0.00-0.03); Imm Gran Pct Auto 0.5 % (0.0-0.4); Lymphocytes Absolute Auto 0.6 X10*3/uL (1.2-4.9); Lymphocytes Percent Auto 3.6 % (20-40); MANUAL DIFF FLAG SCAN; Mean Corpuscular Hemoglobin 27.8 pg (27.0-33.0); Mean Corpuscular Volume 84.2 fL (80.0-98.0); Mean Platelet Volume 9.7 fL (9.4-12.4); Monocytes Absolute Auto 0.5 X10*3/uL (0.1-1.2); Monocytes Percent Auto 2.8 % (2-11); Neutrophils Absolute Auto 15.6 x10*3/uL (2.0-8.3); Neutrophils Percent Auto 92.7 % (45-73); Platelet Count 366 X10*3/uL (160-400); Red Blood Count 4.75 X10*6/uL (4.60-5.80); Red Cell Distribution Width 12.8 % (11.0-16.0); SCAN SMEAR FLAG 1; White Blood Count 16.8 X10*3/uL (4.8-10.8)
[2024-02-03 07:13] LABS: SLIDE REVIEW VERIFIED
[2024-02-03 07:14] VITALS: BP 107/64; PULSE 67; RESP 18; TEMP 36.8; O2SAT 98
[2024-02-03] MEDS: Pantoprazole Sodium 40 MG/10 ML VIAL IVPUSH (07:42)
[2024-02-03 08:45] LABS: Anion Gap 12 (12-20); Blood Urea Nitrogen 19 mg/dL (9-16); Calcium 9.1 mg/dL (8.4-10.2); Carbon Dioxide 23 mmol/L (22-29); Chloride 109 mmol/L (96-108); Estimated Glomerular Filt Rate > 60; Glucose Fasting 137 mg/dL (60-99); Potassium 4.6 mmol/L (3.3-5.1); Sodium 139 mmol/L (135-145)
[2024-02-03] MEDS: 0.9 % Sodium Chloride 1,000 ML 100 ML IVCONT (10:46)
--- NOTE | 2024-02-03 11:57 | HO.POSTANES ---
Post Anesthesia Evaluation Post Anesthesia Evaluation Date of Service: 02/03/24 Vital Signs: Vital Signs Temp Pulse Resp BP Pulse Ox O2 Del Method 02/03/24 07:14 98.2 F 67 18 107/64 98 Room Air 02/03/24 03:34 97.3 F 66 16 121/76 98 Room Air Anesthesia: General Endotracheal-GETA Mental Status: Awake Pain Control: Satisfactory Nausea/Vomiting: None Hydration: Adequate Anesthesia-Related Issues: No Anes. Related Issues
--- NOTE | 2024-02-03 12:23 | PM.PNGS ---
Subjective Subjective Date of Service: 02/03/24 Interval history: FEELING MUCH BETTER, NO flatus but less pain Physical Exam Vital Signs: Vital Signs: Last Vital Signs Temp 98.2 F 02/03/24 07:14 Pulse 67 02/03/24 07:14 Resp 18 02/03/24 07:14 BP 107/64 02/03/24 07:14 Pulse Ox 98 02/03/24 07:14 O2 Del Method Room Air 02/03/24 07:14 O2 Flow Rate 6 02/02/24 18:43 BMI result Body Mass Index 26.1 Const: General: cooperative, healthy appearing and comfortable Resp: Effort & Inspection: normal respiratory effort Auscultation: clear to auscultation bilaterally Cardio: Rate: regular rate Rhythm: regular rhythm GI: Other: abdo soft less tender rlq - appropriate midline tenderness Objective Data Active Medications Enoxaparin Sodium (Enoxaparin Sodium 40 Mg/0.4 Ml Syringe) 40 mg SUBCUT Q24H [facility] Last Admin: 02/02/24 19:57 Dose: 40 mg Documented By: MARK Sodium Chloride (Ns) 1,000 mls @ 100 mls/hr IVCONT .Q10H [facility] Last Admin: 02/03/24 10:46 Dose: 100 mls/hr Documented By: YARI Piperacillin Sod/Tazobactam (Sod 3.375 gm/ Sodium Chloride) 50 mls @ 100 mls/hr IV Q6H [facility] Last Infusion: 02/03/24 12:05 Dose: Infused Documented By: YARI Ketorolac Tromethamine (Ketorolac Tromethamine 15 Mg/Ml Vial) 15 mg IVPUSH RQ6H PRN PRN Reason: Pain, Severe (Pain Scale 7-10) Ketorolac Tromethamine (Ketorolac Tromethamine 15 Mg/Ml Vial) 15 mg IVPUSH Q6H [facility] Last Admin: 02/03/24 11:35 Dose: 15 mg Documented By: YARI Morphine Sulfate (Morphine Sulfate 4 Mg/Ml Cartridge) 4 mg IVPUSH Q3H PRN; Protocol PRN Reason: Pain, Severe (Pain Scale 7-10) Ondansetron HCl (Ondansetron Hcl 4 Mg/2 Ml Vial) 4 mg IVPUSH RQ6H PRN PRN Reason: Nausea and Vomiting Last Admin: 02/02/24 11:41 Dose: 4 mg Documented By: YARI Pantoprazole Sodium (Pantoprazole Sodium 40 Mg/10 Ml Vial) 40 mg IVPUSH DAILY [facility] Last Admin: 02/03/24 07:42 Dose: 40 mg Documented By: YARI Sodium Chloride (0.9 % Sodium Chloride Flush 3 Ml Syringe) 3 ml IVFLUSH QSHIFT [facility] Last Admin: 02/03/24 07:41 Dose: Not Given Documented By: YARI Non-Admin Reason: IV Running Labs 02/03/24 05:47 02/03/24 Unknown Labs: Laboratory Results - last 24 hr 02/03/24 02/03/24 05:47 Unknown MCV 84.2 MCH 27.8 MCHC 33.0 RDW 12.8 Plt Count 366 MPV 9.7 Immature Gran % (Auto) 0.5 H Neut % (Auto) 92.7 H Lymph % (Auto) 3.6 L [place] % (Auto) 2.8 Eos % (Auto) 0.2 Baso % (Auto) 0.2 Lymph # (Auto) 0.6 L [place] # (Auto) 0.5 Eos # (Auto) 0.0 Baso # (Auto) 0.0 Abs Immat Gran (auto) 0.09 H Absolute Neuts (auto) 15.6 H Absolute Nucleated RBC 0.000 Nucleated RBC % (auto) 0.0 Smear Tech's Comments VERIFIED Anion Gap 12 Estim Creat Clear Calc 62.0 Estimated GFR > 60 Fasting Glucose 137 H Calcium 9.1 Procedures Date of Service Date of Service: 02/03/24 Progress Note: A&P Assessment and plan (1) Acute appendicitis: Status: Acute Plan pT SP POD 2 WITH ACUTE PERF APPENDICITIS - DOING WELL - MAY HAVE ILEUS DUE TO PERF AND DISTENDED SMALL BOWEL BUT DOING WELL slow po advance and iv antibx and po pain meds Time Spent With Patient Time: Total time managing care of this patient today ____ minutes. Quality Stroke Does the patient have a stroke diagnosis?: No VTE Prior VTE?: No VTE Risk Level:: Surgical - low VTE Device Contraindication: N/A - Device Ordered VTE Drug Contraindication: Treatment Not Tolerated
--- NOTE | 2024-02-03 12:51 | PC.NURSE ---
F/C removed at this time.
[2024-02-03 13:28] VITALS: BP 138/88; PULSE 72; RESP 17; TEMP 37; O2SAT 98
[2024-02-03] MEDS: Morphine Sulfate 4 MG/ML CARTRIDGE IVPUSH (14:51)
[2024-02-03 15:43] VITALS: BP 111/77; PULSE 83; RESP 18; TEMP 36.5; O2SAT 97
[2024-02-03 19:27] VITALS: BP 121/73; PULSE 83; RESP 18; TEMP 36.6; O2SAT 97
[2024-02-03] MEDS: Enoxaparin Sodium 40 MG/0.4 ML SYRINGE SUBCUT (19:51)
--- NOTE | 2024-02-03 23:20 | PC.NURSE ---
Addendum entered by Vivien Lindsay RN 02/04/24 06:20: patient not voided yet since last time, bladder scanned for 90 ml. Addendum entered by Vivien Lindsay RN 02/04/24 00:13: patient just voided 350 ml. Original Note: FC removed during day shift. First DTV was supposed to be at 1900, patient did not void yet, no discomfort .Bladder scanned for 160 ml at this time. Will cont. to monitor.
[2024-02-03 23:38] VITALS: BP 112/71; PULSE 79; RESP 18; TEMP 36.6; O2SAT 97
[2024-02-04] VITALS (9 sets, daily range): BP systolic 117–150; BP diastolic 68–80; PULSE 74–92; RESP 17–20; TEMP 36.1–37.1; O2SAT 95–97
[2024-02-04] MEDS: Ketorolac Tromethamine 15 MG/ML VIAL IVPUSH ×5 (00:38→23:46)
[2024-02-04] MEDS: 0.9 % Sodium Chloride Flush 3 ML SYRINGE IVFLUSH ×4 (00:39→20:52)
[2024-02-04] MEDS: Piperacillin Sodium/Tazobactam 3.375 GM in 0.9 % Sodium Chloride 50 ML IV ×5 (00:39→23:49)
[2024-02-04 06:15] LABS: Basophils Percent Auto 0.2 % (0-2); Hematocrit 38.4 % (42.0-52.0); Hemoglobin 12.5 g/dl (14.0-18.0); Imm Gran Pct Auto 0.6 % (0.0-0.4); Lymphocytes Absolute Auto 0.9 X10*3/uL (1.2-4.9); Lymphocytes Percent Auto 5.2 % (20-40); MANUAL DIFF FLAG SCAN; Mean Corpuscular HGB Conc 32.6 g/dl (31.0-36.0); Mean Corpuscular Volume 82.9 fL (80.0-98.0); Mean Platelet Volume 9.4 fL (9.4-12.4); Monocytes Absolute Auto 0.6 X10*3/uL (0.1-1.2); Monocytes Percent Auto 3.8 % (2-11); Neutrophils Absolute Auto 14.9 x10*3/uL (2.0-8.3); Neutrophils Percent Auto 90.2 % (45-73); Platelet Count 391 X10*3/uL (160-400); Red Blood Count 4.63 X10*6/uL (4.60-5.80); SCAN SMEAR FLAG 1; White Blood Count 16.5 X10*3/uL (4.8-10.8)
--- NOTE | 2024-02-04 07:34 | P.PNGS_ITS ---
Subjective Subjective Date of Service: 02/04/24 <Kristin Gautam PA-C - Last Filed: 02/04/24 07:36> 02/04/24 <Bautista Lovett MD - Last Filed: 02/04/24 08:02> Interval history: Still with some nausea, no flatus yet. OOB and ambulating occasionally. Pain minimal and well controlled. <Kristin Gautam PA-C - Last Filed: 02/04/24 07:36> Physical Exam 2 Vital Signs: Vital Signs: Last Vital Signs Temp 97.1 F 02/04/24 07:15 Pulse 74 02/04/24 07:15 Resp 17 02/04/24 07:15 BP 132/80 02/04/24 07:15 Pulse Ox 96 02/04/24 07:15 O2 Del Method Room Air 02/04/24 07:15 O2 Flow Rate 6 02/02/24 18:43 BMI result Body Mass Index 26.1 <Kristin Gautam PA-C - Last Filed: 02/04/24 07:36> Const: General: comfortable, no acute distress and alert <Kristin Gautam PA-C - Last Filed: 02/04/24 07:36> Orientation/consciousness: patient oriented x3 <RONNI Flores Last Filed: 02/04/24 07:36> Resp: Effort & Inspection: normal respiratory effort <Kristin Gautam PA-C - Last Filed: 02/04/24 07:36> GI: Inspection: Yes distended and Yes incision (clean) <Kristin Gautam PA-C - Last Filed: 02/04/24 07:36> Palpation (GI): Soft to palpation, Tenderness to palpation present (GI) (incisional) and no guarding <RONNI Flores Last Filed: 02/04/24 07:36> Skin: General skin exam: no rashes or lesions noted <RONNI Flores Last Filed: 02/04/24 07:36> Neuro: General: patient oriented x3 and moves all extremities <RONNI Flores Last Filed: 02/04/24 07:36> Objective Data Active Medications Enoxaparin Sodium (Enoxaparin Sodium 40 Mg/0.4 Ml Syringe) 40 mg SUBCUT Q24H [facility] Last Admin: 02/03/24 19:51 Dose: 40 mg Documented By: MARK Piperacillin Sod/Tazobactam (Sod 3.375 gm/ Sodium Chloride) 50 mls @ 100 mls/hr IV Q6H [facility] Last Infusion: 02/04/24 06:35 Dose: Infused Documented By: MARK Ketorolac Tromethamine (Ketorolac Tromethamine 15 Mg/Ml Vial) 15 mg IVPUSH RQ6H PRN PRN Reason: Pain, Severe (Pain Scale 7-10) Ketorolac Tromethamine (Ketorolac Tromethamine 15 Mg/Ml Vial) 15 mg IVPUSH Q6H [facility] Last Admin: 02/04/24 05:59 Dose: 15 mg Documented By: MARK Morphine Sulfate (Morphine Sulfate 4 Mg/Ml Cartridge) 4 mg IVPUSH Q3H PRN; Protocol PRN Reason: Pain, Severe (Pain Scale 7-10) Last Admin: 02/03/24 14:51 Dose: 4 mg Documented By: YARI Ondansetron HCl (Ondansetron Hcl 4 Mg/2 Ml Vial) 4 mg IVPUSH RQ6H PRN PRN Reason: Nausea and Vomiting Last Admin: 02/02/24 11:41 Dose: 4 mg Documented By: YARI Pantoprazole Sodium (Pantoprazole Sodium 40 Mg/10 Ml Vial) 40 mg IVPUSH DAILY [facility] Last Admin: 02/03/24 07:42 Dose: 40 mg Documented By: YARI Sodium Chloride (0.9 % Sodium Chloride Flush 3 Ml Syringe) 3 ml IVFLUSH QSHIFT [facility] Last Admin: 02/04/24 00:39 Dose: 3 ml Documented By: MARK <Kristin Gautam PA-C - Last Filed: 02/04/24 07:36> Labs CBC & Chem 7: 02/03/24 05:47 02/03/24 Unknown <Kristin Gautam PA-C - Last Filed: 02/04/24 07:36> Labs: Laboratory Results - last 24 hr 02/03/24 Unknown Anion Gap 12 Estim Creat Clear Calc 62.0 Estimated GFR > 60 Fasting Glucose 137 H Calcium 9.1 <Kristin Gautam PA-C - Last Filed: 02/04/24 07:36> Procedures Date of Service Date of Service: 02/04/24 <Kristin Gautam PA-C - Last Filed: 02/04/24 07:36> 02/04/24 <Bautista Lovett MD - Last Filed: 02/04/24 08:02> Progress Note: A&P Assessment and plan (1) S/P appendectomy: Status: Acute <Kristin Gautam PA-C - Last Filed: 02/04/24 07:36> Assessment and Plan: Feels well overall Minimal pain Abdomen is soft, mildly distended, no guarding rebound, incisions clean and dry Describes some nausea Plan to advance diet as soon as good return of GI function is noted Looks well overall Encouraged to ambulate and get out of bed Seen and examined independently <aButista Lovett MD - Last Filed: 02/04/24 08:02> (2) Acute appendicitis: Status: Acute <Kristin Gautam PA-C - Last Filed: 02/04/24 07:36> Assessment and Plan: S/p open appendectomy for perf appendicitis. GI function slow to recover. VSs. Abd exam with clean incisions, distended. Will cont clear liquids until evidence of GI function. Increase activity. Educated on IS use and encouraged 10x/hr. Patient comfortable with plan. Cont IV abx. <Kristin Gautam PA-C - Last Filed: 02/04/24 07:36> Time Spent With Patient Time: Total time managing care of this patient today ____ minutes. <Kristin Gautam PA-C - Last Filed: 02/04/24 07:36> Quality Stroke Does the patient have a stroke diagnosis?: No <Kristin Gautam PA-C - Last Filed: 02/04/24 07:36> VTE Prior VTE?: No <Kristin Gautam PA-C - Last Filed: 02/04/24 07:36> VTE Risk Level:: Surgical - low <RONNI Flores Last Filed: 02/04/24 07:36> VTE Device Contraindication: N/A - Device Ordered <Kristin Gautam PA-C - Last Filed: 02/04/24 07:36> VTE Drug Contraindication: Treatment Not Tolerated <Kristin Gautam PA-C - Last Filed: 02/04/24 07:36>
[2024-02-04 08:19] LABS: SLIDE REVIEW VERIFIED
--- NOTE | 2024-02-04 08:44 | HO.POSTANES ---
Post Anesthesia Evaluation Post Anesthesia Evaluation Date of Service: 02/04/24 Vital Signs: Vital Signs Temp Pulse Resp BP Pulse Ox O2 Del Method 02/04/24 07:15 97.1 F 74 17 132/80 96 Room Air 02/04/24 04:00 97.3 F 79 18 117/73 96 Room Air 02/03/24 23:38 97.9 F 79 18 112/71 97 Room Air Anesthesia: General Endotracheal-GETA Mental Status: Awake Pain Control: Satisfactory Nausea/Vomiting: None Hydration: Adequate Anesthesia-Related Issues: No Anes. Related Issues
[2024-02-04] MEDS: Morphine Sulfate 4 MG/ML CARTRIDGE IVPUSH ×2 (08:52→20:49)
[2024-02-04] MEDS: Pantoprazole Sodium 40 MG/10 ML VIAL IVPUSH (08:55)
[2024-02-04] MEDS: ondansetron HCL 4 MG/2 ML VIAL IVPUSH (08:57)
--- NOTE | 2024-02-04 13:06 | MHC.CM.PN ---
pt not discussed in rounds dc plan remains home
[2024-02-04] MEDS: Enoxaparin Sodium 40 MG/0.4 ML SYRINGE SUBCUT (17:46)
--- NOTE | 2024-02-04 20:35 | PC.NURSE ---
This RN assumed care at 1900, Pt AOx4, Pt reporting 7/10 constant abd pain. Respirations even an unlabored, clear lung sounds throughout. BSx4, abdomen round and tender, midline incision dsg D/I with no drainage noted. Pt calm, cooperative and no apparent distress, call vargas within reach.
[2024-02-05 03:28] VITALS: BP 133/77; PULSE 92; RESP 16; TEMP 36.6; O2SAT 96
[2024-02-05] MEDS: ondansetron HCL 4 MG/2 ML VIAL IVPUSH ×2 (04:37→16:41)
[2024-02-05] MEDS: Ketorolac Tromethamine 15 MG/ML VIAL IVPUSH ×4 (05:15→23:33)
[2024-02-05] MEDS: Piperacillin Sodium/Tazobactam 3.375 GM in 0.9 % Sodium Chloride 50 ML IV ×4 (05:16→23:34)
[2024-02-05 07:49] VITALS: BP 138/79; PULSE 82; RESP 16; TEMP 36.5; O2SAT 98
--- NOTE | 2024-02-05 08:15 | PM.PNGS ---
Subjective Subjective Date of Service: 02/05/24 <Kristin Gautam PA-C - Last Filed: 02/05/24 08:18> 02/05/24 <Bautista Lovett MD - Last Filed: 02/05/24 08:35> Interval history: Vomited twice last night but feels improved this morning. No flatus. Ambulating without difficulty with walker. <Kristin Gautam PA-C - Last Filed: 02/05/24 08:18> Physical Exam Vital Signs: Vital Signs: Last Vital Signs Temp 97.7 F 02/05/24 07:49 Pulse 8 L 02/05/24 07:49 Resp 16 02/05/24 07:49 BP 138/79 02/05/24 07:49 Pulse Ox 98 02/05/24 07:49 O2 Del Method Room Air 02/05/24 07:49 O2 Flow Rate 6 02/02/24 18:43 BMI result Body Mass Index 26.1 <Kristin Gautam PA-C - Last Filed: 02/05/24 08:18> Const: General: comfortable, no acute distress and alert <Kristin Gautam PA-C - Last Filed: 02/05/24 08:18> Orientation/consciousness: patient oriented x3 <RONNI Flores Last Filed: 02/05/24 08:18> Resp: Effort & Inspection: normal respiratory effort <Kristin Gautam PA-C - Last Filed: 02/05/24 08:18> GI: Inspection: Yes distended and Yes incision (clean) <Kristin Gautam PA-C - Last Filed: 02/05/24 08:18> Palpation (GI): Soft to palpation, Tenderness to palpation present (GI) (mild incisional) and no guarding <RONNI Flores Last Filed: 02/05/24 08:18> Skin: General skin exam: no rashes or lesions noted <RONNI Flores Last Filed: 02/05/24 08:18> Neuro: General: patient oriented x3 and moves all extremities <RONNI Flores Last Filed: 02/05/24 08:18> Objective Data Active Medications Enoxaparin Sodium (Enoxaparin Sodium 40 Mg/0.4 Ml Syringe) 40 mg SUBCUT Q24H [facility] Last Admin: 02/04/24 17:46 Dose: 40 mg Documented By: RAFITA Piperacillin Sod/Tazobactam (Sod 3.375 gm/ Sodium Chloride) 50 mls @ 100 mls/hr IV Q6H [facility] Last Infusion: 02/05/24 05:46 Dose: Infused Documented By: EDDIE Ketorolac Tromethamine (Ketorolac Tromethamine 15 Mg/Ml Vial) 15 mg IVPUSH RQ6H PRN PRN Reason: Pain, Severe (Pain Scale 7-10) Ketorolac Tromethamine (Ketorolac Tromethamine 15 Mg/Ml Vial) 15 mg IVPUSH Q6H [facility] Last Admin: 02/05/24 05:15 Dose: 15 mg Documented By: EDDIE Morphine Sulfate (Morphine Sulfate 4 Mg/Ml Cartridge) 4 mg IVPUSH Q3H PRN; Protocol PRN Reason: Pain, Severe (Pain Scale 7-10) Last Admin: 02/04/24 20:49 Dose: 4 mg Documented By: EDDIE Ondansetron HCl (Ondansetron Hcl 4 Mg/2 Ml Vial) 4 mg IVPUSH RQ6H PRN PRN Reason: Nausea and Vomiting Last Admin: 02/05/24 04:37 Dose: 4 mg Documented By: EDDIE Sodium Chloride (0.9 % Sodium Chloride Flush 3 Ml Syringe) 3 ml IVFLUSH QSHIFT [facility] Last Admin: 02/04/24 20:52 Dose: 3 ml Documented By: EDDIE <Kristin Gautam PA-C - Last Filed: 02/05/24 08:18> Labs CBC & Chem 7: 02/04/24 06:01 02/03/24 Unknown <Kristin Gautam PA-C - Last Filed: 02/05/24 08:18> Labs: Laboratory Results - last 24 hr 02/04/24 06:01 MCV 82.9 MCH 27.0 MCHC 32.6 RDW 13.0 Plt Count 391 MPV 9.4 Immature Gran % (Auto) 0.6 H Neut % (Auto) 90.2 H Lymph % (Auto) 5.2 L D[place] % (Auto) 3.8 Eos % (Auto) 0.0 Baso % (Auto) 0.2 Lymph # (Auto) 0.9 L [place] # (Auto) 0.6 Eos # (Auto) 0.0 Baso # (Auto) 0.0 Abs Immat Gran (auto) 0.10 H Absolute Neuts (auto) 14.9 H Absolute Nucleated RBC 0.000 Nucleated RBC % (auto) 0.0 Smear Tech's Comments VERIFIED <Kristin Gautam PA-C - Last Filed: 02/05/24 08:18> Procedures Date of Service Date of Service: 02/05/24 <Kristin Gautam PA-C - Last Filed: 02/05/24 08:18> 02/05/24 <Bautista Lovett MD - Last Filed: 02/05/24 08:35> Progress Note: A&P Assessment and plan (1) S/P appendectomy: Status: Acute <Kristin Gautam PA-C - Last Filed: 02/05/24 08:18> Assessment and Plan: says he vomitted last night denies flatus looks well abd soft and benign await return of GI function encouraged ambulation seen and examined independently <Bautista Lovett MD - Last Filed: 02/05/24 08:35> Assessment and Plan: S/p open appendectomy for perf appendicitis. GI function slow to recover, expected due to amount of inflammatory changes surrounding SB due to perforation. VSS. Abd exam with clean incisions, remains distended. Will cont clear liquids until evidence of GI function. Increase activity. Educated on IS use and encouraged 10x/hr. Patient comfortable with plan. Cont IV abx. <Kristin Gautam PA-C - Last Filed: 02/05/24 08:18> Time Spent With Patient Time: Total time managing care of this patient today ____ minutes. <Kristin Gautam PA-C - Last Filed: 02/05/24 08:18> Quality Stroke Does the patient have a stroke diagnosis?: No <RONNI Flores Last Filed: 02/05/24 08:18> VTE Prior VTE?: No <Kristin Gautam PA-C - Last Filed: 02/05/24 08:18> VTE Risk Level:: Surgical - low <Kristin Gautam PA-C - Last Filed: 02/05/24 08:18> VTE Device Contraindication: N/A - Device Ordered <Kristin Gautam PA-C - Last Filed: 02/05/24 08:18> VTE Drug Contraindication: Treatment Not Tolerated <Kristin Gautam PA-C - Last Filed: 02/05/24 08:18>
[2024-02-05] MEDS: 0.9 % Sodium Chloride Flush 3 ML SYRINGE IVFLUSH ×3 (08:28→23:36)
[2024-02-05 12:00] VITALS: BP 135/88; PULSE 83; RESP 16; TEMP 36.4; O2SAT 96
[2024-02-05 15:00] VITALS: BP 122/80; PULSE 87; RESP 16; TEMP 36.2; O2SAT 97
[2024-02-05 19:59] VITALS: BP 150/80; PULSE 74; RESP 16; TEMP 36.4; O2SAT 98
[2024-02-05] MEDS: Enoxaparin Sodium 40 MG/0.4 ML SYRINGE SUBCUT (20:10)
--- NOTE | 2024-02-05 20:30 | PC.NURSE ---
This RN assumed care at 1900, Pt AOx4, Pt denies pain at this time. Respirations even an unlabored, clear lung sounds throughout. Hypoactive BSx4, abdomen round and tender, per pt no flatulence passed yet, midline incision dsg D/I with no drainage noted. Pt calm, cooperative and no apparent distress, call vargas within reach.
[2024-02-05 23:39] VITALS: BP 136/82; PULSE 83; RESP 16; TEMP 36; O2SAT 99
[2024-02-06] VITALS (8 sets, daily range): BP systolic 144–171; BP diastolic 60–93; PULSE 64–84; RESP 16–18; TEMP 36–36.4; O2SAT 98–100
[2024-02-06] MEDS: Ketorolac Tromethamine 15 MG/ML VIAL IVPUSH ×4 (05:08→23:44)
[2024-02-06] MEDS: Piperacillin Sodium/Tazobactam 3.375 GM in 0.9 % Sodium Chloride 50 ML IV ×4 (05:10→23:45)
[2024-02-06] MEDS: 0.9 % Sodium Chloride Flush 3 ML SYRINGE IVFLUSH ×2 (07:10→23:49)
--- NOTE | 2024-02-06 08:30 | P.PNGS_ITS ---
Subjective Subjective Date of Service: 02/06/24 Interval history: Says he feels well this morning Denies pain Denies vomiting Tolerating clear liquids Says he has passed flatus Physical Exam 2 Vital Signs: Vital Signs: Last Vital Signs Temp 97.6 F 02/06/24 07:59 Pulse 84 02/06/24 07:59 Resp 18 02/06/24 07:59 BP 144/87 H 02/06/24 07:59 Pulse Ox 99 02/06/24 07:59 O2 Del Method Room Air 02/06/24 07:59 O2 Flow Rate 6 02/02/24 18:43 BMI result Body Mass Index 26.1 Const: Other: Looks well General: comfortable and no acute distress Resp: Effort & Inspection: normal respiratory effort Cardio: Rate: regular rate GI: Other: Mildly distended but soft, incision clean and dry Palpation (GI): Soft to palpation, not firm and no guarding Objective Data Active Medications Enoxaparin Sodium (Enoxaparin Sodium 40 Mg/0.4 Ml Syringe) 40 mg SUBCUT Q24H [facility] Last Admin: 02/05/24 20:10 Dose: 40 mg Documented By: EDDIE Piperacillin Sod/Tazobactam (Sod 3.375 gm/ Sodium Chloride) 50 mls @ 100 mls/hr IV Q6H [facility] Last Infusion: 02/06/24 05:40 Dose: Infused Documented By: EDDIE Ketorolac Tromethamine (Ketorolac Tromethamine 15 Mg/Ml Vial) 15 mg IVPUSH RQ6H PRN PRN Reason: Pain, Severe (Pain Scale 7-10) Ketorolac Tromethamine (Ketorolac Tromethamine 15 Mg/Ml Vial) 15 mg IVPUSH Q6H [facility] Last Admin: 02/06/24 05:08 Dose: 15 mg Documented By: EDDIE Morphine Sulfate (Morphine Sulfate 4 Mg/Ml Cartridge) 4 mg IVPUSH Q3H PRN; Protocol PRN Reason: Pain, Severe (Pain Scale 7-10) Last Admin: 02/04/24 20:49 Dose: 4 mg Documented By: EDDIE Ondansetron HCl (Ondansetron Hcl 4 Mg/2 Ml Vial) 4 mg IVPUSH RQ6H PRN PRN Reason: Nausea and Vomiting Last Admin: 02/05/24 16:41 Dose: 4 mg Documented By: RAFITA Sodium Chloride (0.9 % Sodium Chloride Flush 3 Ml Syringe) 3 ml IVFLUSH QSHIFT [facility] Last Admin: 02/06/24 07:10 Dose: 3 ml Documented By: SETHIT Labs 02/04/24 06:01 02/03/24 Unknown Procedures Date of Service Date of Service: 02/06/24 Progress Note: A&P Assessment and plan (1) Acute appendicitis: Status: Acute Assessment and Plan: Status post open appendectomy Clinically doing well No fever Passed flatus Abdominal exam benign Will advance diet as tolerated DC home once tolerating diet well Discussed with his as well Time Spent With Patient Time: Total time managing care of this patient today ____ minutes. Quality Stroke Does the patient have a stroke diagnosis?: No VTE Prior VTE?: No VTE Risk Level:: Surgical - low VTE Device Contraindication: N/A - Device Ordered VTE Drug Contraindication: Treatment Not Tolerated
[2024-02-06] MEDS: ondansetron HCL 4 MG/2 ML VIAL IVPUSH (12:35)
--- NOTE | 2024-02-06 12:38 | PC.NURSE ---
Abdomen distended,patient complaining of increased burning pain in lower abdomen,c/o nausea,Zofran administered,Dr. Lovett notified,NPO ,patient made aware
[2024-02-06] MEDS: Lactated Ringers 1,000 ML 80 ML IVCONT (13:26)
--- NOTE | 2024-02-06 14:44 | PM.EVENT ---
Event Note Date of Service: 02/06/24 Event Note: Seen on afternoon rounds He complained of distention and some pain after eating Also reports some nausea Abdomen remains very soft and benign KUB ordered - shows some distended small bowel loops suggestive of ileus keep on clear liquids for now Repeat labs tomorrow Clinically looks well No fever Time Spent With Patient Time: Total time managing care of this patient today ____ minutes.
--- NOTE | 2024-02-06 16:28 | PM.EVENT ---
Event Note Date of Service: 02/06/24 Event Note: he says he feels well this afternoon denies abdl pain says he has had no nausea this afternoon abd soft, benign keep on clears today reevaluate tomorrow check labs tomorrow Time Spent With Patient Time: Total time managing care of this patient today ____ minutes.
[2024-02-06] MEDS: Enoxaparin Sodium 40 MG/0.4 ML SYRINGE SUBCUT (17:01)
[2024-02-07] VITALS (7 sets, daily range): BP systolic 138–166; BP diastolic 78–94; PULSE 61–90; RESP 13–18; TEMP 36.1–36.4; O2SAT 98–100
[2024-02-07] MEDS: Morphine Sulfate 4 MG/ML CARTRIDGE IVPUSH ×2 (01:16→10:28)
[2024-02-07] MEDS: Piperacillin Sodium/Tazobactam 3.375 GM in 0.9 % Sodium Chloride 50 ML IV ×3 (05:40→17:48)
[2024-02-07] MEDS: Ketorolac Tromethamine 15 MG/ML VIAL IVPUSH ×3 (05:40→17:47)
--- NOTE | 2024-02-07 08:05 | PM.PNGS ---
Subjective Subjective Date of Service: 02/07/24 <Kristin Gautam PA-C - Last Filed: 02/07/24 08:08> 02/07/24 <Bautista Lovett MD - Last Filed: 02/07/24 08:36> Interval history: Feels better this morning. Less bloating. No nausea or vomiting overnight. Continues to pass flatus but no BM. Ambulating halls multiple tmes a day. Would like to try food again. <Kristin Gautam PA-C - Last Filed: 02/07/24 08:08> Physical Exam Vital Signs: Vital Signs: Last Vital Signs Temp 96.9 F 02/07/24 07:16 Pulse 68 02/07/24 07:16 Resp 18 02/07/24 07:16 BP 140/80 H 02/07/24 07:16 Pulse Ox 100 02/07/24 07:16 O2 Del Method Room Air 02/07/24 07:16 O2 Flow Rate 6 02/02/24 18:43 BMI result Body Mass Index 26.1 <Kristin Gautam PA-C - Last Filed: 02/07/24 08:08> Const: General: comfortable, no acute distress and alert <RONNI Flores Last Filed: 02/07/24 08:08> Orientation/consciousness: patient oriented x3 <Kristin Gautam PA-C - Last Filed: 02/07/24 08:08> GI: Inspection: Yes distended (softly, improved ) and Yes incision (clean, some nonpurulent drainage at superior aspect) <Kristin Gautam PA-C - Last Filed: 02/07/24 08:08> Palpation (GI): Soft to palpation and Tenderness to palpation present (GI) (mild ) <RONNI Flores Last Filed: 02/07/24 08:08> Skin: General skin exam: no rashes or lesions noted <RONNI Flores Last Filed: 02/07/24 08:08> Neuro: General: patient oriented x3 and moves all extremities <RONNI Flores Last Filed: 02/07/24 08:08> Objective Data Active Medications Enoxaparin Sodium (Enoxaparin Sodium 40 Mg/0.4 Ml Syringe) 40 mg SUBCUT Q24H [facility] Last Admin: 02/06/24 17:01 Dose: 40 mg Documented By: LOREN Piperacillin Sod/Tazobactam (Sod 3.375 gm/ Sodium Chloride) 50 mls @ 100 mls/hr IV Q6H [facility] Last Infusion: 02/07/24 06:17 Dose: Infused Documented By: JOSEFINA Lactated Ringer's (Lr) 1,000 mls @ 80 mls/hr IVCONT .[id number] [facility] Last Infusion: 02/07/24 06:27 Dose: 0 mls/hr Documented By: JOSEFINA Ketorolac Tromethamine (Ketorolac Tromethamine 15 Mg/Ml Vial) 15 mg IVPUSH Q6H [facility] Last Admin: 02/07/24 05:40 Dose: 15 mg Documented By: JOSEFINA Morphine Sulfate (Morphine Sulfate 4 Mg/Ml Cartridge) 4 mg IVPUSH Q3H PRN; Protocol PRN Reason: Pain, Severe (Pain Scale 7-10) Last Admin: 02/07/24 01:16 Dose: 4 mg Documented By: JOSEFINA Ondansetron HCl (Ondansetron Hcl 4 Mg/2 Ml Vial) 4 mg IVPUSH RQ6H PRN PRN Reason: Nausea and Vomiting Last Admin: 02/06/24 12:35 Dose: 4 mg Documented By: LOREN Oxycodone HCl (Oxycodone Hcl Immed Release 5 Mg Tablet) 5 mg PO Q4H PRN PRN Reason: Pain, Moderate(Pain Scale 4-6) Sodium Chloride (0.9 % Sodium Chloride Flush 3 Ml Syringe) 3 ml IVFLUSH QSHIFT [facility] Last Admin: 02/06/24 23:49 Dose: 3 ml Documented By: JOSEFINA <Kristin Gautam PA-C - Last Filed: 02/07/24 08:08> Labs CBC & Chem 7: 02/04/24 06:01 02/03/24 Unknown <Kristin Gautam PA-C - Last Filed: 02/07/24 08:08> Procedures Date of Service Date of Service: 02/07/24 <Kristin Gautam PA-C - Last Filed: 02/07/24 08:08> 02/07/24 <Bautista Lovett MD - Last Filed: 02/07/24 08:36> Progress Note: A&P Assessment and plan (1) S/P appendectomy: Status: Acute <Kristin Gautam PA-C - Last Filed: 02/07/24 08:08> Assessment and Plan: feels well denies vomitting denies abdl pain abd soft passing flatus advance diet slowly looks well seen and examined independently <Bautista Lovett MD - Last Filed: 02/07/24 08:36> (2) Acute appendicitis: Status: Acute <Kristin Gautam PA-C - Last Filed: 02/07/24 08:08> Assessment and Plan: s/p open appendectomy, perforated appendicitis cont IV zosyn, IVF awaiting AM labs delayed return of GI function, expected advance diet to full liquids and then further as tolerated cont OOB/ambulation <Kristin Gautam PA-C - Last Filed: 02/07/24 08:08> Time Spent With Patient Time: Total time managing care of this patient today ____ minutes. <Kristin Gautam PA-C - Last Filed: 02/07/24 08:08> Quality Stroke Does the patient have a stroke diagnosis?: No <Kristin Gautam PA-C - Last Filed: 02/07/24 08:08> VTE Prior VTE?: No <Kristin Gautam PA-C - Last Filed: 02/07/24 08:08> VTE Risk Level:: Surgical - low <Kristin Gautam PA-C - Last Filed: 02/07/24 08:08> VTE Device Contraindication: N/A - Device Ordered <RONNI Flores Last Filed: 02/07/24 08:08> VTE Drug Contraindication: Treatment Not Tolerated <Kristin Gautam PA-C - Last Filed: 02/07/24 08:08>
--- NOTE | 2024-02-07 13:12 | MHC.CM.PN ---
A call was received from Financial turbine mechanic, Zee. She will meet with the patient today for a financial consult. She was notified that he is from [place] visiting friends. He is 68 yrs old. She will look into his insurance.
[2024-02-07] MEDS: Lactated Ringers 1,000 ML 80 ML IVCONT (15:18)
[2024-02-07] MEDS: Enoxaparin Sodium 40 MG/0.4 ML SYRINGE SUBCUT (17:52)
[2024-02-08] VITALS (7 sets, daily range): BP systolic 112–168; BP diastolic 76–97; PULSE 64–91; RESP 13–18; TEMP 36–36.9; O2SAT 96–98
[2024-02-08] MEDS: Piperacillin Sodium/Tazobactam 3.375 GM in 0.9 % Sodium Chloride 50 ML IV ×5 (00:34→22:47)
[2024-02-08] MEDS: Lactated Ringers 1,000 ML 80 ML IVCONT (00:38)
--- NOTE | 2024-02-08 08:52 | P.PNGS_ITS ---
Subjective Subjective Date of Service: 02/08/24 <Kristin Gautam PA-C - Last Filed: 02/08/24 08:56> 02/08/24 <Bautista Lovett MD - Last Filed: 02/08/24 10:20> Interval history: Feels better this morning. Very mild burning at incision site. Passing flatus and had BM yesterday. Tolerating full liquids. Feels hungry. <Kristin Gautam PA-C - Last Filed: 02/08/24 08:56> Physical Exam 2 Vital Signs: Vital Signs: Last Vital Signs Temp 97.6 F 02/08/24 07:33 Pulse 67 02/08/24 07:33 Resp 13 02/08/24 07:33 BP 112/76 02/08/24 07:33 Pulse Ox 98 02/08/24 07:33 O2 Del Method Room Air 02/08/24 07:33 O2 Flow Rate 6 02/02/24 18:43 Oxygen Flow Rate 98 02/07/24 15:00 BMI result Body Mass Index 26.1 <Kristin Gautam PA-C - Last Filed: 02/08/24 08:56> Const: General: comfortable, no acute distress and alert <RONNI Flores Last Filed: 02/08/24 08:56> Orientation/consciousness: patient oriented x3 <RONNI Flores Last Filed: 02/08/24 08:56> Resp: Effort & Inspection: normal respiratory effort <Kristin Gautam PA-C - Last Filed: 02/08/24 08:56> GI: Inspection: Yes distended (mild, improved ) and Yes incision (fibroserous drainage ) <Kristin Gautam PA-C - Last Filed: 02/08/24 08:56> Palpation (GI): Soft to palpation, Tenderness to palpation present (GI) and no guarding <RONNI Flores Last Filed: 02/08/24 08:56> Skin: General skin exam: no rashes or lesions noted <RONNI Flores Last Filed: 02/08/24 08:56> Neuro: General: patient oriented x3 <Kristin Gautam PA-C - Last Filed: 02/08/24 08:56> Objective Data Active Medications Enoxaparin Sodium (Enoxaparin Sodium 40 Mg/0.4 Ml Syringe) 40 mg SUBCUT Q24H [facility] Last Admin: 02/07/24 17:52 Dose: 40 mg Documented By: HUMBERTO Piperacillin Sod/Tazobactam (Sod 3.375 gm/ Sodium Chloride) 50 mls @ 100 mls/hr IV Q6H [facility] Last Infusion: 02/08/24 06:10 Dose: Infused Documented By: AMISH Ondansetron HCl (Ondansetron Hcl 4 Mg/2 Ml Vial) 4 mg IVPUSH RQ6H PRN PRN Reason: Nausea and Vomiting Last Admin: 02/06/24 12:35 Dose: 4 mg Documented By: LOREN Oxycodone HCl (Oxycodone Hcl Immed Release 5 Mg Tablet) 5 mg PO Q4H PRN PRN Reason: Pain, Moderate(Pain Scale 4-6) Sodium Chloride (0.9 % Sodium Chloride Flush 3 Ml Syringe) 3 ml IVFLUSH QSHIFT [facility] Last Admin: 02/08/24 08:37 Dose: Not Given Documented By: HUMBERTO Non-Admin Reason: IV Running <Kristin Gautam PA-C - Last Filed: 02/08/24 08:56> Labs CBC & Chem 7: 02/04/24 06:01 02/03/24 Unknown <Kristin Gautam PA-C - Last Filed: 02/08/24 08:56> Procedures Date of Service Date of Service: 02/08/24 <Kristin Gautam PA-C - Last Filed: 02/08/24 08:56> 02/08/24 <Bautista Lovett MD - Last Filed: 02/08/24 10:20> Progress Note: A&P Assessment and plan (1) S/P appendectomy: Status: Acute <Kristin Gautam PA-C - Last Filed: 02/08/24 08:56> Assessment and Plan: Says he feels well this morning Passing flatus Has BMs Abdomen soft Some drainage from the mid part of the incision - probed with a Q-tip, with note of drainage consistent with subcutaneous fat necrosis Dressings were applied Diet as tolerated Looks well Okay to DC home once tolerating diet well Seen and examined independently <Bautista Lovett MD - Last Filed: 02/08/24 10:20> (2) Acute appendicitis: Status: Acute <Kristin Gautam PA-C - Last Filed: 02/08/24 08:56> Assessment and Plan: s/p open appendectomy, perforated appendicitis cont IV zosyn AM labs werent drawn yesterday, will reorder for today Tolerating full liquids, will advance to solid diet cont OOB/ambulation possibly home tomorrow if tolerating solid diet <Kristin Gautam PA-C - Last Filed: 02/08/24 08:56> Time Spent With Patient Time: Total time managing care of this patient today ____ minutes. <Kristin Gautma PA-C - Last Filed: 02/08/24 08:56> Quality Stroke Does the patient have a stroke diagnosis?: No <Kristin Gautam PA-C - Last Filed: 02/08/24 08:56> VTE Prior VTE?: No <Kristin Gautam PA-C - Last Filed: 02/08/24 08:56> VTE Risk Level:: Surgical - low <Kristin Gautam PA-C - Last Filed: 02/08/24 08:56> VTE Device Contraindication: N/A - Device Ordered <Kristin Gautam PA-C - Last Filed: 02/08/24 08:56> VTE Drug Contraindication: Treatment Not Tolerated <Kristin Gautam PA-C - Last Filed: 02/08/24 08:56>
--- NOTE | 2024-02-08 09:39 | MHC.CM.PN ---
Addendum entered by Jessa Mancilla 02/08/24 15:26: A call has been received from Itzel Koch. The patient is not a [place] resident. He is not an [place] citizen. He is from [facility]. Her is not eligible for insurance per Zee. Correction to prior addendum. A clerical error was made. The patient is He not she. Addendum entered by Jessa Mancilla 02/08/24 14:22: Patient will not discharge today. She is planned for discharge tomorrow, if she tolerate diet. Original Note: Per RN patient may discharge today if diet is tolerated. DP Patients is visiting friends. He will return to his house. He will arrange for his friend to provide transport home.
[2024-02-08] MEDS: oxyCODONE HCl Immed Release 5 MG TABLET PO (10:16)
[2024-02-08 11:12] LABS: Hematocrit 40.8 % (42.0-52.0); Hemoglobin 13.2 g/dl (14.0-18.0); Mean Corpuscular HGB Conc 32.4 g/dl (31.0-36.0); Mean Corpuscular Hemoglobin 27.4 pg (27.0-33.0); Mean Corpuscular Volume 84.8 fL (80.0-98.0); Mean Platelet Volume 9.5 fL (9.4-12.4); Platelet Count 422 X10*3/uL (160-400); Red Blood Count 4.81 X10*6/uL (4.60-5.80); Red Cell Distribution Width 13.1 % (11.0-16.0); White Blood Count 6.9 X10*3/uL (4.8-10.8)
[2024-02-08 11:24] LABS: Anion Gap 10 (12-20); Blood Urea Nitrogen 13 mg/dL (9-16); Calcium 10.1 mg/dL (8.4-10.2); Carbon Dioxide 32 mmol/L (22-29); Chloride 107 mmol/L (96-108); Creatinine Clr Calc Pharmacy 78.8; Estimated Glomerular Filt Rate > 60; Glucose Random 103 mg/dL (60-115); Potassium 3.7 mmol/L (3.3-5.1); Sodium 145 mmol/L (135-145)
[2024-02-08 11:45] LABS: Atypical Lymph Absolute Manual 0.1 x10*3/uL; Atypical Lymphs Percent Manual 1 % (0-6); Band Neutrophils Percent 3 % (3-5); Lymphocytes Absolute Manual 1.1 X10*3/uL (1.2-4.9); Lymphocytes Percent Manual 16 % (20-40); Metamyelocytes Absolute 0.2 X10*3/uL; Metamyelocytes Percent 3 %; Monocytes Absolute Manual 0.3 X10*3/uL (0.1-1.2); Monocytes Percent Manual 5 % (2-11); Neutrophils Absolute Manual 5.2 X10*3/uL (2.0-8.3); Neutrophils Percent Manual 72 % (45-73)
[2024-02-08 11:47] LABS: Large Platelet PRESENT; Platelet Estimate SLIGHTLY INCREASED (NORMAL); Platelet Morphology Comment NOTE; RBC Morphology NORMAL
[2024-02-08] MEDS: 0.9 % Sodium Chloride Flush 3 ML SYRINGE IVFLUSH ×2 (15:27→22:47)
[2024-02-08] MEDS: Enoxaparin Sodium 40 MG/0.4 ML SYRINGE SUBCUT (18:01)
[2024-02-09] VITALS (8 sets, daily range): BP systolic 122–174; BP diastolic 83–97; PULSE 72–95; RESP 14–20; TEMP 36.2–36.9; O2SAT 98–100
[2024-02-09] MEDS: Piperacillin Sodium/Tazobactam 3.375 GM in 0.9 % Sodium Chloride 50 ML IV (05:50)
--- NOTE | 2024-02-09 09:22 | P.PNGS_ITS ---
Subjective Subjective Date of Service: 02/09/24 Interval history: Feels well Passing large amounts of flatus Tolerating diet well Denies abdominal pain Physical Exam 2 Vital Signs: Vital Signs: Last Vital Signs Temp 97.1 F 02/09/24 07:12 Pulse 77 02/09/24 07:12 Resp 18 02/09/24 07:12 BP 164/89 H 02/09/24 07:12 Pulse Ox 99 02/09/24 07:12 O2 Del Method Room Air 02/09/24 07:12 O2 Flow Rate 6 02/02/24 18:43 Oxygen Flow Rate 98 02/07/24 15:00 BMI result Body Mass Index 26.1 Const: General: comfortable and no acute distress Resp: Effort & Inspection: normal respiratory effort Cardio: Rate: regular rate GI: Other: Incision with some drainage but otherwise healing well Palpation (GI): Soft to palpation, not firm and no guarding Objective Data Active Medications Enoxaparin Sodium (Enoxaparin Sodium 40 Mg/0.4 Ml Syringe) 40 mg SUBCUT Q24H [facility] Last Admin: 02/08/24 18:01 Dose: 40 mg Documented By: HUMBERTO Piperacillin Sod/Tazobactam (Sod 3.375 gm/ Sodium Chloride) 50 mls @ 100 mls/hr IV Q6H [facility] Last Infusion: 02/09/24 06:30 Dose: Infused Documented By: LISS Ondansetron HCl (Ondansetron Hcl 4 Mg/2 Ml Vial) 4 mg IVPUSH RQ6H PRN PRN Reason: Nausea and Vomiting Last Admin: 02/06/24 12:35 Dose: 4 mg Documented By: LOREN Oxycodone HCl (Oxycodone Hcl Immed Release 5 Mg Tablet) 5 mg PO Q4H PRN PRN Reason: Pain, Moderate(Pain Scale 4-6) Last Admin: 02/08/24 10:16 Dose: 5 mg Documented By: HUMBERTO Sodium Chloride (0.9 % Sodium Chloride Flush 3 Ml Syringe) 3 ml IVFLUSH QSHIFT [facility] Last Admin: 02/09/24 07:45 Dose: Not Given Documented By: SCAR Non-Admin Reason: no IV access Labs 02/08/24 10:38 02/08/24 10:38 Labs: Laboratory Results - last 24 hr 02/08/24 10:38 MCV 84.8 MCH 27.4 MCHC 32.4 RDW 13.1 Plt Count 422 H MPV 9.5 Immature Gran % (Auto) Cancelled Neut % (Auto) Cancelled Lymph % (Auto) Cancelled Victoria % (Auto) Cancelled Eos % (Auto) Cancelled Baso % (Auto) Cancelled Lymph # (Auto) Cancelled Victoria # (Auto) Cancelled Eos # (Auto) Cancelled Baso # (Auto) Cancelled Abs Immat Gran (auto) Cancelled Absolute Neuts (auto) Cancelled Absolute Nucleated RBC 0.000 Nucleated RBC % (auto) 0.0 Neutrophils % (Manual) 72 Band Neutrophils % 3 Lymphocytes % (Manual) 16 L Atypical Lymphs % (Man) 1 Monocytes % (Manual) 5 Metamyelocytes % 3 Abs Neuts (Manual) 5.2 Lymphocytes # (Manual) 1.1 L Atyp Lymphs # (Manual) 0.1 Monocytes # (Manual) 0.3 Metamyelocytes # 0.2 Platelet Estimate SLIGHTLY INCREASED Large Platelets PRESENT Plt Morphology Comment NOTE RBC Morphology NORMAL Anion Gap 10 L Estim Creat Clear Calc 78.8 Estimated GFR > 60 Random Glucose 103 Calcium 10.1 D Procedures Date of Service Date of Service: 02/09/24 Progress Note: A&P Assessment and plan (1) S/P appendectomy: Status: Acute Assessment and Plan: Clinically doing well Tolerating diet and has flatus Says he has not had a bowel movement since yesterday He does not feel ready to be discharged today and says he will go home tomorrow Exam very benign We will add stool softener Patient has been ambulating well Time Spent With Patient Time: Total time managing care of this patient today ____ minutes. Quality Stroke Does the patient have a stroke diagnosis?: No VTE Prior VTE?: No VTE Risk Level:: Surgical - low VTE Device Contraindication: N/A - Device Ordered VTE Drug Contraindication: Treatment Not Tolerated
[2024-02-09] MEDS: Docusate Sodium 100 MG CAPSULE PO (09:33)
--- NOTE | 2024-02-09 10:00 | PC.NURSE ---
General Surgeon Bony made aware pt IV fell out by accident, pt is refusing replacement of IV.
[2024-02-09] MEDS: Enoxaparin Sodium 40 MG/0.4 ML SYRINGE SUBCUT (17:55)
[2024-02-10] MEDS: oxyCODONE HCl Immed Release 5 MG TABLET PO (00:03)
[2024-02-10 01:00] VITALS: RESP 16
[2024-02-10 02:53] VITALS: BP 139/81; PULSE 83; RESP 16; TEMP 36.4; O2SAT 99
[2024-02-10 07:36] VITALS: BP 125/81; PULSE 79; RESP 18; TEMP 36.6; O2SAT 98
[2024-02-10] MEDS: Docusate Sodium 100 MG CAPSULE PO (08:05)
--- NOTE | 2024-02-10 09:40 | P.PNGS_ITS ---
Subjective Subjective Date of Service: 02/10/24 Interval history: He feels well Tolerating diet well Has BMs and flatus Says he is ready to be discharged Physical Exam 2 Vital Signs: Vital Signs: Last Vital Signs Temp 98 F 02/10/24 07:36 Pulse 79 02/10/24 07:36 Resp 18 02/10/24 07:36 BP 125/81 02/10/24 07:36 Pulse Ox 98 02/10/24 07:36 O2 Del Method Room Air 02/10/24 07:36 O2 Flow Rate 6 02/02/24 18:43 Oxygen Flow Rate 98 02/07/24 15:00 BMI result Body Mass Index 26.1 Const: General: comfortable and no acute distress Cardio: Rate: regular rate GI: Other: Incision with some scanty drainage from subcutaneous fat necrosis, trice intact Palpation (GI): Soft to palpation, not firm, nontender and no guarding Objective Data Active Medications Docusate Sodium (Docusate Sodium 100 Mg Capsule) 100 mg PO BID [facility] Last Admin: 02/10/24 08:05 Dose: 100 mg Documented By: SCAR Enoxaparin Sodium (Enoxaparin Sodium 40 Mg/0.4 Ml Syringe) 40 mg SUBCUT Q24H [facility] Last Admin: 02/09/24 17:55 Dose: 40 mg Documented By: SCAR Ondansetron HCl (Ondansetron Hcl 4 Mg/2 Ml Vial) 4 mg IVPUSH RQ6H PRN PRN Reason: Nausea and Vomiting Last Admin: 02/06/24 12:35 Dose: 4 mg Documented By: LOREN Oxycodone HCl (Oxycodone Hcl Immed Release 5 Mg Tablet) 5 mg PO Q4H PRN PRN Reason: Pain, Moderate(Pain Scale 4-6) Last Admin: 02/10/24 00:03 Dose: 5 mg Documented By: JESSICA Sodium Chloride (0.9 % Sodium Chloride Flush 3 Ml Syringe) 3 ml IVFLUSH QSHIFT [facility] Last Admin: 02/10/24 08:05 Dose: Not Given Documented By: SCAR Non-Admin Reason: no IV access Labs 02/08/24 10:38 02/08/24 10:38 Procedures Date of Service Date of Service: 02/10/24 Progress Note: A&P Assessment and plan (1) S/P appendectomy: Status: Acute Assessment and Plan: Clinically doing well Good GI functions Tolerating diet well Abdomen soft and benign Incision some scanty drainage from subcutaneous fat necrosis, no pus Okay to DC home Discharge instructions reviewed with patient as well as his on the phone - he is scheduled to fly back to [place] this week Time Spent With Patient Time: Total time managing care of this patient today ____ minutes. Quality Stroke Does the patient have a stroke diagnosis?: No VTE Prior VTE?: No VTE Risk Level:: Surgical - low VTE Device Contraindication: N/A - Device Ordered VTE Drug Contraindication: Treatment Not Tolerated
--- NOTE | 2024-02-10 10:25 | MHC.CM.PN ---
pt dcd home self care
--- NOTE | 2024-02-13 09:33 | PM.DS ---
DS: Providers Provider Date of Service: 02/10/24 Date of admission: 02/01/24 19:42 Date of discharge: 02/10/24 Primary care physician: Nonstaff Physician Attending physician on admission: Adrianna Palacios Consults: 02/01/24 16:26 Consult to General Surgery Stat Consulting Provider: [facility] General Surgeons Reason for consultation: appendicitis Attending physician on discharge: Bautista Lovett DS: Diagnosis Discharge Diagnosis (1) S/P appendectomy: Status: Acute DS: Summary Hospital Course Hospital Course: HPI AT ADMISSION: Monica Singh is a 68 year old male who lives in [place] visiting friends when he says he got caught in the rain and got wet and then got a cold and then with a cold started having abdominal pain some diarrhea and then the pain got worse in the right lower quadrant so she came to the emergency room. He has had a temperature he has never had pain like this before. Generally he says he is very healthy and does not really take any medications no previous surgeries. Here his white count was elevated in the 14,[address] scan showed significant inflammatory changes in the right lower quadrant with thickened small bowel and appendix a little enlarged with appendicolith present. Patient denies any issues with Crohn's disease ulcerative colitis etc.. HOSPITAL COURSE: He was admitted to the surgical service for further treatment of the abdominal pain. Unclear etiology- appendicitis versus enteritis considering his prodromal symptoms as well. He was started on IV antibiotics with plan to re-evaluate in the morning and if not improved then carry out exploratory laparoscopy with appendectomy. He did not improve with IV antibiotics and bowel rest therefore it was recommended to proceed with laparoscopic exploration, possible open procedure with goal to remove the appendix. He was added onto the OR schedule for that day. On 02/02/24, exploratory laparoscopy converted to open appendectomy was performed by Dr. Palacios without immediate complication. The appendix was ruptured with free appendicoliths and surrounded by the terminal ileum and with a pocket of purulent exudate at the base of the cecum and the TI. He had an uncomplicated but slow recovery course. His clark was removed. He remained inpatient for 8 days post operatively due to slow recovery of GI function which was expected given the perforated appendicitis, peritonitis, and degree of SB inflammatory changes. He was kept on clear liquids until he had evidence of GI function. His leukocytosis resolved post operatively. His activity was increased and he was ambulated. He did develop increasing distention and nausea/vomiting following advancement of his diet- f/u AXR showed dilated bowel. Supportive measures were continued until he had increasing GI function. He began to pass continuous flatus and move his bowels. He was advanced from clear liquids to solids. His pain remained well controlled. His abdomen remained benign with clean incision with small amt of nonpurulent drainage, trice intact. On the day of discharge, he was tolerating a solid diet without nausea or vomiting, had good pain control on oral analgesics and was ambulating without difficulty. His abdomen was benign with clean incision. He was continued on IV zosyn during this time and completed his course of abx. He was discharged on 02/10/24 in stable condition. He is from [place] and will be following up with his PCP upon return. Status at Discharge Functional status at discharge: independent ambulation Overall status at discharge: patient is progressing back to baseline Time Attestation Discharge Coordination Time (in mins): 40 Quality: Safe Use of Opioids Does Pt have an Active Cancer Diagnosis on the Problem List?: No Quality: Stroke Does the patient have a stroke diagnosis?: No Physical Exam Vital Signs: Vital Signs: Last Vital Signs Temp 98 F 02/10/24 07:36 Pulse 79 02/10/24 07:36 Resp 18 02/10/24 07:36 BP 125/81 02/10/24 07:36 Pulse Ox 98 02/10/24 07:36 O2 Del Method Room Air 02/10/24 07:36 O2 Flow Rate 6 02/02/24 18:43 Oxygen Flow Rate 98 02/07/24 15:00 BMI result Body Mass Index 26.1 DS: Data Data Completed and Pending Completed studies during hospitalization [Text1]: 02/02/24 17:51 Surgical [PTH] Routine Vermiform appendix, appendectomy: Gangrenous appendicitis and periappendicitis. Discharge Plan Discharge Anticipated Discharge Date/Time: 02/07/24 09:29 Patient Disposition: Home, Self-Care Discharge Diagnosis: perforated appendicitis, s/p appendectomy Referrals: Physician,None [Physician] - 1 Week Discharge Medications: New oxycodone-acetaminophen [Percocet] 5-325 mg tablet 1 tab PO Q4-6H PRN (Reason: pain) Qty: 10 0RF Rx Instructions: Partial Fill upon patient request. oxycodone-acetaminophen [Percocet] 5-325 mg tablet 1 tab PO Q4-6H PRN (Reason: pain) Qty: 15 0RF Rx Instructions: Partial Fill upon patient request. Discharge Orders: Discharge Order (Routine); Ordered 02/10/24 Ordered By: Bautista Lovett Diet: Advance to usual diet Activity on Discharge: No heavy lifting Stand Alone Forms: Patient Portal Discharge page Print Language: Other Activity Restrictions/Additional Instructions: If the incision area is tender, you may apply an ice pack for short intervals (No more than 20 minutes on, followed by at least 20 minutes off). Do not apply heat. Do not use creams, lotions, or topical antibiotics. These can cause infection or allergic reaction. Ok to shower. You have trice closing your incision and these will be removed approximately 10-14 days after surgery. NO HEAVY LIFTING (>10lbs) or strenuous activity for 6 weeks. Follow up with your primary care provider upon returning home. You will need your trice removed. Call Your Doctor or Return to ED If: -Your temperature exceeds 101.5? F -You experience excessive pain or swelling -You have an unexpected reaction to medication -You have excessive bleeding -You experience continued vomiting/nausea -Your incision begins to separate -Your incision shows signs of infection such as increased redness, swelling, excessive pain, drainage (light blood or clear fluid is normal) or heat Care Plan Goals: Return to baseline health and resume normal activities following recovery period. Health Concerns: acute perforated appendicitis Plan of Treatment: s/p open appendectomy IV transition to PO abx F/u with PCP, eventual staple removal Assessment: Doing well post op. Patient Instructions: Appendicitis (GEN), Laparoscopic Appendectomy (GEN) Discharge Date/Time: 02/10/24 14:57
== END 2024-02-10 14:57 | disposition home or self-care (01) | DRG 398 ==
LOC: HO.ED 17:17 → HO.EDOVER 19:50 → HO.S3 02-02 08:03
PROVIDERS: Physician Assistant Surgical; Admitting Provider Surgery; Emergency Provider Emergency Medicine; Visit Provider Surgery
PROC: 0DTJ0ZZ Resection of Appendix, Open Approach (ICD-10-PCS; CPT 49320; principal; 2024-02-02 15:30)
DX: K35.32 Acute appendicitis with perforation, localized peritonitis, and gangrene, without abscess (principal); K56.7 Ileus, unspecified; K38.1 Appendicular concretions; Z20.822 Contact with and (suspected) exposure to COVID-19; Z87.891 Personal history of nicotine dependence
CPT/HCPCS: 0241U; 36415; 71045; 71250; 74018; 74177; 80048; 80053; 83690; 85007; 85025; 85027; 88304; 93005; 99285; C1758; C9113; J0131; J1100; J1650; J1885; J2270; J2405; J2543; J2704; J3010; J7120; Q9967

== ENCOUNTER → 2024-02-01 13:42 | Outpatient (BNV) | payer SELFPAY | PROVIDERS: Admitting Provider Surgery; Emergency Provider Emergency Medicine; Visit Provider Internal Medicine Cardiovascular Disease | DX: R94.31 Abnormal electrocardiogram [ECG] [EKG] (principal) | CPT/HCPCS: 93010 ==

== ENCOUNTER → 2024-02-01 19:42 | Outpatient (BNV) | payer SELFPAY | PROVIDERS: Admitting Provider Surgery; Emergency Provider Emergency Medicine; Visit Provider Surgery | DX: Z90.49 Acquired absence of other specified parts of digestive tract (principal) | CPT/HCPCS: 44960; 99024; 99223; 99233; 99499 ==